=== PATIENT | female | born 1955 | race Caucasian/White ===

== ENCOUNTER 2016-04-21 14:05 | Inpatient (IN) | payer SELFPAY ==
[2016-04-21] VITALS (11 sets, daily range): BP systolic 126–160; BP diastolic 65–78
[~2016-04-21] VITALS: Ht 167.6 cm; Wt 121.0 kg
[2016-04-21 15:47] LABS: DIFF SLIDE NUMBER 167; MEAN CORPUSCULAR HEMOGLOBIN 40.1 pg (27.0-33.0); MEAN CORPUSCULAR HGB CONC 32.7 g/dl (32.0-36.5); MEAN CORPUSCULAR VOLUME 122.8 fl (80.0-96.0); RED CELL DISTRIBUTION WIDTH 18.6 % (11.5-14.5); WHITE BLOOD COUNT 2.1 K/mm3 (4.0-10.0)
[2016-04-21 15:52] LABS: PLATELET COUNT, AUTOMATED 97 k/mm3 (150-450)
[2016-04-21 15:58] LABS: ALBUMIN 4.2 GM/DL (3.2-5.2); ALBUMIN/GLOBULIN RATIO 1.02 (1.00-1.93); ALKALINE PHOSPHATASE 78 U/L (45-117); ALT/SGPT 22 U/L (12-78); ANION GAP 8 MEQ/L (8-16); AST/SGOT 41 U/L (15-37); BILIRUBIN,DIRECT 0.1 MG/DL (0.0-0.2); BILIRUBIN,TOTAL 0.4 MG/DL (0.2-1.0); BLOOD UREA NITROGEN 19 MG/DL (7-18); CALCIUM LEVEL 9.1 MG/DL (8.5-10.1); CARBON DIOXIDE LEVEL 26 MEQ/L (21-32); CHLORIDE LEVEL 105 MEQ/L (98-107); CREATININE FOR GFR 1.88 MG/DL (0.55-1.02); GLOMERULAR FILTRATION RATE 29.2 (>51); GLUCOSE, FASTING 97 MG/DL (70-105); SODIUM LEVEL 139 MEQ/L (136-145); TOTAL PROTEIN 8.3 GM/DL (6.4-8.2)
--- NOTE | 2016-04-21 16:08 | REP ---
Clinical: Syncope. Technique: AP and lateral views. Comparison: None. Findings: Evaluation is limited by portable technique and underpenetration both of which accentuate the pulmonary vasculature and interstitium. Basilar atelectasis along with pulmonary venous congestion cannot be excluded. No discrete focal consolidation, effusion, or pneumothorax. Mediastinum and cardiac silhouette are grossly normal for portable technique. Skeletal structures are intact. Impression: Limited portable examination. Cannot exclude basilar atelectasis or mild pulmonary venous congestion. Signed by Sudarshan Ambriz MD 04/21/2016 03:59 P
[2016-04-21] MEDS ORDERED: MORPHINE 4 MG/ML 1ML SYRINGE As Ordered ONE ×2 (16:25→19:49)
[2016-04-21 16:30] LABS: ERYTHROCYTE SEDIMENTATION RATE 126 mm/hr (0-30)
[2016-04-21] MEDS ORDERED: SYNT175T2 PO (16:30)
[2016-04-21] MEDS ORDERED: BENA25CA2 PO (16:30)
[2016-04-21] MEDS ORDERED: BACL10TA2 PO (16:30)
[2016-04-21 16:40] LABS: BLAST CELLS 2 % (0-0); EOSINOPHILS 1 % (0-5)
[2016-04-21 16:41] LABS: MICROCYTOSIS 4+
[2016-04-21 16:42] LABS: ANISOCYTOSIS 2+
[2016-04-21 17:08] LABS: T UPTAKE 26 % (30-39); THYROXINE (T4) < 0.5 UG/DL (4.5-12.0)
[2016-04-21] MEDS ORDERED: BISACODYL 5 MG TAB PO PRN (17:45)
[2016-04-21] MEDS ORDERED: ONDANSETRON 4MG/2ML VIAL (J2405) IV PRN (17:45)
[2016-04-21 18:34] LABS: FERRITIN 135 NG/ML (8-252); TOTAL IRON BINDING CAPACITY 384 UG/DL (250-450)
[2016-04-21 18:38] LABS: BASO % 0.5 % (0.0-1.0); EOS # 0.1 K/mm3 (0.0-0.50); EOS % 4.1 % (0.0-3.0); LARGE UNSTAINED CELL # 0.2 K/mm3 (0.0-0.4); LARGE UNSTAINED CELL % 7.8 % (0.0-4.0); LYMPH # 1.4 K/mm3 (1.5-4.5); LYMPH % 60.7 % (24.0-44.0); MONO # 0.1 K/mm3 (0.0-0.8); MONO % 4.7 % (0.0-5.0); NEUTROPHILS # 0.5 K/mm3 (1.8-7.7); NEUTROPHILS % 22.3 % (36.0-66.0); RETIC HEMOGLOBIN CONTENT CHr 43.5 PG (24-36); RETICULOCYTE ABSOLUTE ADVIA212 16 x10(9)/L (17-77)
[2016-04-21 18:41] LABS: REASON FOR REVIEW COMPREHENSIVE REVIEW
[2016-04-21 18:55] LABS: PERCENT SATURATION 44.8 % (13.2-37.4)
[2016-04-21 19:05] LABS: URIC ACID 7.8 MG/DL (2.6-6.0)
[2016-04-21] MEDS ORDERED: ONDANSETRON 4MG/2ML VIAL (J2405) As Ordered ONE (20:37)
[2016-04-21] MEDS ORDERED: PERCOCET 5MG/325MG TAB PO PRN ×2 (21:15)
[2016-04-21 21:28] LABS: INR 1.02
[2016-04-21 21:37] LABS: FREE T4 0.19 NG/DL (0.76-1.46)
--- NOTE | 2016-04-21 21:49 | EDDOCDS ---
Nurse's Notes [facility] Name: Anjelica Jeronimo Age: 60 yrs Sex: Female : 1955 Arrival Date: 04/21/2016 Time: 14:05 Bed 10 Private MD: NO PRIMARY PHYSICIAN, . Diagnosis: Pancytopenia;Acute kidney failure;Hypothyroidism, unspecified;Syncope and collapse;Acute pain, not elsewhere classified-exacerbation of chronic back pain Presentation: 04/21 14:10 Presenting complaint: Patient states: c/o chronic low back hip and bilateral shoulder. bcj states that she has passed out several times over last 10 days - becomes very lightheaded, dizzy and passes out when walking up stairs. denies chest pain SOB. states that she has numbness in both legs. denies head injury. Acute neurological deficits are not present. Mechanism of Injury: Fall from standing position. Adult Sepsis Screening: The patient does not have new or worsening altered mentation. Patient's respiratory rate is less than 22. Systolic blood pressure is greater than 100. Patient has a qSOFA score of 0- Negative Sepsis Screen. Suicide/Homicide risk assessment- the patient denies having any suicidal and/or homicidal ideations and does not present with any other emotional, behavioral or mental health complaints. Status: Patient is not a rehabilitation services aide or dependent. Transition of care: patient was not received from another setting of care. 14:10 Acuity: CHADD Level 3 bcj 14:10 Method Of Arrival: Walkin/Carried/Asstd bcj Triage Assessment: 14:17 General: Appears in no apparent distress, comfortable, Behavior is cooperative. Pain: bcj Location: back Pain currently is 8 out of 10 on a pain scale. HIV screening NA for this visit Offered previously. Musculoskeletal: No deficits noted. Historical: - Allergies: IV Dye; - Home Meds: 1. Synthroid 175 mcg Oral tab 1 tab once daily 2. baclofen 10 mg Oral tab as needed - PMHx: Hypothyroidism; lymphoma; - PSHx: infusaport insertion; - Social history: Smoking status: Patient states was never smoker of tobacco. No barriers to communication noted, The patient speaks fluent Divehi, Speaks appropriately for age. - Family history: Not pertinent. - : The pt / caregiver states he / she is not on anticoagulants. Home medication list is obtained from the patient. - Exposure Risk Screening:: None identified. Screenin:07 Screening information is obtained from the patient. Fall risk: At risk due to prior pml history of falls. Assistance ADL's: requires no assistance with activities of daily living. Abuse/DV Screen: The patient / caregiver reports he/she is: not in a situation that causes fear, pain or injury. Nutritional screening: No deficits noted. Advance Directives: Currently, there is no health care proxy. home support is adequate. Assessment: 15:05 General: Appears ill, Behavior is appropriate for age, cooperative. Pain: Location: pml left trapezius, right trapezius and lumbar area Pain currently is 7 out of 10 on a pain scale. Neurological: Level of Consciousness is awake, alert, Oriented to person, place, time. Neurological: Reports several episodes of near syncope and dizziness over last week as well as one episode of syncope in which pt fell off of her commode, denies head injury . Cardiovascular: Capillary refill < 3 seconds Rhythm is sinus rhythm No ectopy. Respiratory: Airway is patent Respiratory effort is unlabored, Respiratory pattern is regular, symmetrical, Breath sounds are clear bilaterally. GI: Abdomen is non- distended obese, Reports nausea. Derm: Skin is pale. 16:10 General: resting on stretcher, continues to report back pain. resps rapid, unlabored, pml skin pale. sinus rhythm on monitor bradycardic in 50s. . 16:53 General: Appears ill, Behavior is appropriate for age, cooperative. Pain: Location: pml lumbar area and right trapezius and left trapezius Pain currently is 8 out of 10 on a pain scale. Neurological: Level of Consciousness is awake, alert, Oriented to person, place, time. Cardiovascular: Capillary refill < 3 seconds Rhythm is sinus rhythm No ectopy. Respiratory: short of breath and tachypneic with attempts to stand and pivot to bedside commode. Derm: Skin is pale. 17:39 General: blood transfusion initiated as per hospital policy. pt family at bedside. pt pml denies complaints. sinus rhythm on monitor. resps unlabored, skin pale . 18:44 General: Appears in no apparent distress, Behavior is appropriate for age, cooperative. pml Neurological: Level of Consciousness is awake, alert, Oriented to person, place, time. Cardiovascular: Capillary refill < 3 seconds. Respiratory: Airway is patent Respiratory effort is even, unlabored. Derm: Skin is pale. 20:01 General: Appears ill, uncomfortable, Behavior is appropriate for age, cooperative, jp6 pleasant. Pain: Location: lumbar area and right trapezius and left trapezius and back Pain currently is 7 out of 10 on a pain scale. Neurological: Level of Consciousness is awake, alert, Oriented to person, place, time. EENT: No deficits noted. Cardiovascular: Capillary refill is > 3 seconds Heart tones S2 muffled Rhythm is sinus rhythm No ectopy. Respiratory: Airway is patent Respiratory effort is even, unlabored, Respiratory pattern is regular, symmetrical, Breath sounds with rales bilaterally. GI: Abdomen is non- distended obese. : No deficits noted. Derm: Skin is intact, Skin is dry, Skin is pale, Skin temperature is cool. Musculoskeletal: Reports weakness in right leg and left leg. 20:51 Reassessment: states pain is down to 5/10. Tolerating transfusion well.. jp6 Cardiovascular: Rhythm is sinus rhythm No ectopy. Respiratory: Airway is patent Respiratory effort is even, unlabored, Respiratory pattern is regular, symmetrical. Derm: Skin is intact, Skin is dry, Skin is pale, Skin temperature is cool. Vital Signs: 14:08 BP 158 / 73; Pulse 88; Resp 18; Temp 97.3; Weight 113.4 kg; Height 5 ft. 6 in. (167.64 elp cm); Pain 8/10; 14:35 BP 168 / 74 (auto/); pml 14:38 Pulse 62 MON; Pulse Ox 95% ; pml 14:50 BP 158 / 89 (auto/); pml 14:51 Pulse 60 MON; Pulse Ox 100% ; pml 15:05 BP 155 / 82 (auto/); pml 15:06 Pulse 56 MON; Pulse Ox 97% ; pml 15:20 BP 167 / 87 (auto/); pml 15:21 Pulse 56 MON; Pulse Ox 99% ; pml 15:35 BP 158 / 93 (auto/); pml 15:35 Pulse 54 MON; Pulse Ox 97% ; pml 15:50 BP 166 / 84 (auto/); pml 15:51 Pulse 64 MON; Pulse Ox 95% ; pml 16:05 BP 151 / 86 (auto/); pml 16:06 Pulse 58 MON; Pulse Ox 100% ; pml 16:20 BP 134 / 75 (auto/); pml 16:20 Pulse 62 MON; Pulse Ox 100% ; pml 16:35 Pulse 74 MON; pml 16:35 BP 174 / 91 (auto/); pml 16:50 Pulse 64 MON; Pulse Ox 98% ; pml 16:50 BP 164 / 78 (auto/); pml 17:05 Pulse 66 MON; Pulse Ox 96% ; pml 17:05 BP 150 / 80 (auto/); pml 17:14 Pulse 54 MON; Pulse Ox 96% ; pml 17:14 BP 149 / 81 (auto/); pml 17:20 Pulse 58 MON; Pulse Ox 95% ; pml 17:20 BP 156 / 108 (auto/); pml 17:30 Pulse 56 MON; Pulse Ox 100% ; pml 17:30 BP 166 / 81 (auto/); pml 17:35 Pulse 54 MON; Pulse Ox 100% ; pml 17:35 BP 167 / 94 (auto/); pml 17:50 BP 163 / 88 (auto/); pml 17:50 Pulse 54 MON; Pulse Ox 95% ; pml 18:05 Pulse 50 MON; Pulse Ox 99% ; pml 18:05 BP 150 / 77 (auto/); pml 18:31 Pulse 62 MON; Pulse Ox 100% ; pml 18:32 BP 185 / 85 (auto/); pml 18:35 Pulse 58 MON; Pulse Ox 99% ; pml 18:35 BP 175 / 91 (auto/); pml 19:05 BP 217 / 86 (auto/); jp6 19:05 Pulse 54 MON; Pulse Ox 98% ; jp6 19:20 BP 193 / 89 (auto/); jp6 19:21 Pulse 54 MON; Pulse Ox 99% ; jp6 19:35 BP 172 / 82 (auto/); jp6 19:35 Pulse 58 MON; Pulse Ox 99% ; jp6 19:50 BP 192 / 94 (auto/); jp6 19:50 Pulse 58 MON; Pulse Ox 99% ; jp6 19:55 BP 146 / 83 (auto/); jp6 19:55 Pulse 58 MON; Pulse Ox 100% ; jp6 19:55 Resp 18; Temp 95.8(O); Pain 7/10; jp6 20:20 BP 132 / 80 (auto/); jp6 20:20 Pulse 54 MON; Pulse Ox 94% ; jp6 20:50 BP 136 / 77 (auto/); jp6 20:50 Pulse 50 MON; Pulse Ox 92% ; jp6 20:50 Pulse Ox 98% on R/A; Pain 5/10; jp6 14:08 Body Mass Index 40.35 (113.40 kg, 167.64 cm) [facility] Vitals: 14:08 Log In Time: April 21, 2016 at 14:06. [facility] ED Course: 14:07 Patient visited by Vivinaa Mims PCA. elp 14:07 Patient moved to Waiting elp 14:08 NO PRIMARY PHYSICIAN, . is Private Physician. elp 14:08 Patient visited by Viviana Mims PCA. elp 14:09 Patient moved to Pre RCE elp 14:14 Triage Initiated bcj 14:18 Patient visited by Iftikhar Mckee RN. bcj 14:23 Patient moved to 10 [facility] 14:25 Steffi Zaman DO is [facility]. jo4 14:25 Aarti Vasquez MD is Attending Physician. jo4 15:07 Patient visited by Paula Osuna RN. pml 15:07 The patient / caregiver is instructed regarding the plan of care and ED course. Patient pml has correct armband on for positive identification. Placed in gown. Bed in low position. Call light in reach. Side rails up X2. monitoring tech on. Pulse ox on. NIBP on. 15:07 Inserted peripheral IV: 20gauge IV in right antecubital area and blood collected. pml Patient tolerated the procedure well. 15:18 Jaye Wheat FNP is [facility]. le 15:34 Patient visited by Jaye Wheat FNP. le 15:34 Patient visited by Jaye Wheat FNP. le 16:09 Patient visited by Chico Brasher PCA. jrd 16:09 EKG done. (by ED staff). Reviewed by Jaye FARAH. jrd 16:19 DIFFERENTIAL NO CHARGE Sent. pml 16:35 Patient name changed from Anjelica\S\\S\[place]\S\ to Anjelica\S\ \S\[place]. EDMS 16:37 [facility] [place] [place] Payment Agreement was scanned into [employer] and attached to record. ks16 16:41 Patient visited by Mirian Galeana RN. ck1 16:41 Chest, 2 View (pa\E\lat) Returned. EDMS 16:44 Patient visited by Paula Osuna,JEWELS. pml 16:54 Patient visited by Paula Osuna,JEWELS. pml 17:40 Patient visited by Paula Osuna,JEWELS. pml 17:49 Hilda Fine is Hospitalizing Provider. le 18:23 Patient visited by Trina Dumas,JEWELS. kh7 18:45 Patient visited by Paula Osuna,JEWELS. pml 18:50 Blood products: PRBCs X 1 unit given. pml 19:14 Mila Peña,JEWELS is Primary Nurse. jp6 19:55 No procedures done that require assistance. jp6 19:55 Blood products: PRBCs X 1 unit given. See transfusion record. jp6 20:01 URINE CULTURE Sent. jp6 21:47 Patient visited by Lilibeth Couch RN. tm5 Administered Medications: 16:36 Drug: morphine 4 mg [morphine 4 mg/mL intravenous cartridge (1 mL)] Route: IVP; Site: rs3 left hand; 16:53 Drug: NS 0.9% 1000 ml [sodium chloride 0.9 % injection syringe] Route: IV; Rate: bolus; pml Site: right antecubital; 20:00 Drug: morphine 4 mg [morphine 4 mg/mL intravenous cartridge (1 mL)] Route: IVP; Site: jp6 right antecubital; 20:45 Drug: Ondansetron 4 mg Route: IVP; Site: right antecubital; jp6 Intake: 20:50 PO: 150.00ml; IV: 400.00ml (PRBC); Total: 550.00ml. jp6 Output: 20:50 Urine: 0.00ml; Total: 0.00ml. jp6 Order Results: Lab Order: Basic Metabolic Profile; SPEC'M 04/21/16 14:42 Test: GLUCOSE, FASTING; Value: 97; Range: 70-105; Units: MG/DL; Status: F Test: BLOOD UREA NITROGEN; Value: 19; Range: 7-18; Abnormal: Above high normal; Units: MG/DL; Status: F Test: CREATININE FOR GFR; Value: 1.88; Range: 0.55-1.02; Abnormal: Above high normal; Units: MG/DL; Status: F Test: GLOMERULAR FILTRATION RATE; Value: 29.2; Range: >51; Abnormal: Below low normal; Status: F Test: SODIUM LEVEL; Value: 139; Range: 136-145; Units: MEQ/L; Status: F Test: POTASSIUM SERUM; Value: 4.0; Range: 3.5-5.1; Units: MEQ/L; Status: F Test: CHLORIDE LEVEL; Value: 105; Range: 98-107; Units: MEQ/L; Status: F Test: CARBON DIOXIDE LEVEL; Value: 26; Range: 21-32; Units: MEQ/L; Status: F Test: ANION GAP; Value: 8; Range: 8-16; Units: MEQ/L; Status: F Test: CALCIUM LEVEL; Value: 9.1; Range: 8.5-10.1; Units: MG/DL; Status: F Test Note: ; Units are mL/min/1.73 m2 Chronic Kidney Disease Staging per NKF: Stage I & II GFR >=60 Normal to Mildly Decreased Stage III GFR 30-59 Moderately Decreased Stage IV GFR 15-29 Severely Decreased Stage V GFR <15 Very Little GFR Left ESRD GFR <15 on STAPLER HAND Lab Order: CBC with Diff; SPEC'M 04/21/16 14:42 Test: WHITE BLOOD COUNT; Value: 2.1; Range: 4.0-10.0; Abnormal: Below low normal; Units: K/mm3; Status: F Test: RED BLOOD COUNT; Value: 1.32; Range: 4.00-5.40; Abnormal: Below low normal; Units: M/mm3; Status: F Test: HEMOGLOBIN; Value: 5.3; Range: 12.0-16.0; Abnormal: Critical Low; Units: g/dl; Status: F Test: HEMATOCRIT; Value: 16.2; Range: 36.0-47.0; Abnormal: Below low normal; Units: %; Status: F Test: MEAN CORPUSCULAR VOLUME; Value: 122.8; Range: 80.0-96.0; Abnormal: Above high normal; Units: fl; Status: F Test: MEAN CORPUSCULAR HEMOGLOBIN; Value: 40.1; Range: 27.0-33.0; Abnormal: Above high normal; Units: pg; Status: F Test: MEAN CORPUSCULAR HGB CONC; Value: 32.7; Range: 32.0-36.5; Units: g/dl; Status: F Test: RED CELL DISTRIBUTION WIDTH; Value: 18.6; Range: 11.5-14.5; Abnormal: Above high normal; Units: %; Status: F Test: PLATELET COUNT, AUTOMATED; Value: 97; Range: 150-450; Abnormal: Below low normal; Units: k/mm3; Status: F Test: NEUTROPHILS; Value: 22; Range: 35-75; Abnormal: Below low normal; Units: %; Status: F Test: LYMPHOCYTES; Value: 71; Range: 16-52; Abnormal: Above high normal; Units: %; Status: F Test: MONOCYTES; Value: 4; Range: 0-8; Units: %; Status: F Test: EOSINOPHILS; Value: 1; Range: 0-5; Units: %; Status: F Test: BLAST CELLS; Value: 2; Range: 0-0; Abnormal: Above high normal; Units: %; Status: F Test: ANISOCYTOSIS; Value: 2+; Status: F Test: MICROCYTOSIS; Value: 4+; Status: F Test: NEUTROPHILS %; Value: 22.3; Range: 36.0-66.0; Abnormal: Below low normal; Units: %; Status: F Test: LYMPH %; Value: 60.7; Range: 24.0-44.0; Abnormal: Above high normal; Units: %; Status: F Test: MONO %; Value: 4.7; Range: 0.0-5.0; Units: %; Status: F Test: EOS %; Value: 4.1; Range: 0.0-3.0; Abnormal: Above high normal; Units: %; Status: F Test: BASO %; Value: 0.5; Range: 0.0-1.0; Units: %; Status: F Test: LARGE UNSTAINED CELL %; Value: 7.8; Range: 0.0-4.0; Abnormal: Above high normal; Units: %; Status: F Test: NEUTROPHILS #; Value: 0.5; Range: 1.8-7.7; Abnormal: Below low normal; Units: K/mm3; Status: F Test: LYMPH #; Value: 1.4; Range: 1.5-4.5; Abnormal: Below low normal; Units: K/mm3; Status: F Test: MONO #; Value: 0.1; Range: 0.0-0.8; Units: K/mm3; Status: F Test: EOS #; Value: 0.1; Range: 0.0-0.50; Units: K/mm3; Status: F Test: BASO #; Value: 0.0; Range: 0.0-0.2; Units: K/mm3; Status: F Test: LARGE UNSTAINED CELL #; Value: 0.2; Range: 0.0-0.4; Units: K/mm3; Status: F Lab Order: Cardiac Injury Profile; [facility]' 04/21/16 14:42 Test: CPK CREATINE PHOSPHOKINASE; Value: 999; Range: 26-192; Abnormal: Above high normal; Units: U/L; Status: F Test: CK-MB VALUE MASS; Value: 6.0; Range: 0.0-3.6; Abnormal: Above high normal; Units: NG/ML; Status: F Test: MB/CK RELATIVE INDEX; Value: 0.60; Range: < OR =4; Status: F Test Note: ; DIAGNOSIS CRITERIA MMB ng/ml Relative Index (RI) NON-AMI < or = 5 N/A FU ZONE > 5 < or = 4 AMI > 5 > 4 Lab Order: Thyroid Stimulating Hormone; [facility] 04/21/16 14:42 Test: THYROID STIMULATING HORMONE; Value: 133.000; Range: 0.358-3.740; Abnormal: Above high normal; Units: uIU/ML; Status: F Lab Order: Troponin; [facility] 04/21/16 14:42 Test: TROPONIN I; Value: < 0.02; Range: < 0.10; Units: NG/ML; Status: F Test Note: ; Troponin I Reference Interval for Spectropath LOCI: 99th Percentile= 0.00-0.045 ng/ml Risk Stratification: <= 0.10 ng/ml Decreased Risk for Adverse Clinical Events. 0.10-1.50 ng/ml Increased Risk for Adverse Clinical Events. Evaluation of additional criterion and/or repeat testing in 2-6 hours is suggested to rule out myocardial damage. >= 1.50 ng/ml Indicative of Myocardial Injury. Lab Order: Urinalysis; [facility] 04/21/16 16:51 Test: APPEARANCE, URINE; Value: CLEAR; Range: CLEAR; Status: F Test: COLOR, URINE; Value: STRAW; Range: YELLOW; Status: F Test: PH,URINE; Value: 6.0; Range: 5.0-9.0; Units: UNITS; Status: F Test: SPECIFIC GRAVITY URINE AUTO; Value: 1.004; Range: 1.002-1.035; Status: F Test: PROTEIN, URINE AUTO; Value: NEGATIVE; Range: NEGATIVE; Units: mg/dL; Status: F Test: GLUCOSE, URINE (UA) AUTO; Value: NEGATIVE; Range: NEGATIVE; Units: mg/dL; Status: F Test: KETONE, URINE AUTO; Value: NEGATIVE; Range: NEGATIVE; Units: mg/dL; Status: F Test: UROBILINOGEN, URINE AUTO; Value: 0.2; Range: 0.0-2.0; Units: mg/dL; Status: F Test: BILIRUBIN, URINE AUTO; Value: NEGATIVE; Range: NEGATIVE; Status: F Test: NITRITE, URINE AUTO; Value: NEGATIVE; Range: NEGATIVE; Status: F Test: LEUKOCYTE ESTERASE, URINE AUTO; Value: 3+; Range: NEGATIVE; Abnormal: Above high normal; Status: F Test: BLOOD, URINE BLOOD; Value: NEGATIVE; Range: NEGATIVE; Status: F Test: WBC, URINE AUTO; Value: 20; Range: 0-3; Abnormal: Above high normal; Units: /HPF; Status: F Test: RBC, URINE AUTO; Value: 3; Range: 0-3; Units: /HPF; Status: F Test: BACTERIA, URINE AUTO; Value: 1+; Range: NEGATIVE; Abnormal: Above high normal; Status: F Test: SQUAMOUS EPITHELIAL CELL UR AU; Value: 2; Range: 0-6; Units: /HPF; Status: F Test: HYALINE CAST, URINE AUTO; Value: 0; Range: 0-1; Units: /LPF; Status: F Lab Order: Liver Profile; SPEC'M 04/21/16 14:42 Test: AST/SGOT; Value: 41; Range: 15-37; Abnormal: Above high normal; Units: U/L; Status: F Test: ALT/SGPT; Value: 22; Range: 12-78; Units: U/L; Status: F Test: ALKALINE PHOSPHATASE; Value: 78; Range: 45-117; Units: U/L; Status: F Test: BILIRUBIN,TOTAL; Value: 0.4; Range: 0.2-1.0; Units: MG/DL; Status: F Test: BILIRUBIN,DIRECT; Value: 0.1; Range: 0.0-0.2; Units: MG/DL; Status: F Test: TOTAL PROTEIN; Value: 8.3; Range: 6.4-8.2; Abnormal: Above high normal; Units: GM/DL; Status: F Test: ALBUMIN; Value: 4.2; Range: 3.2-5.2; Units: GM/DL; Status: F Test: ALBUMIN/GLOBULIN RATIO; Value: 1.02; Range: 1.00-1.93; Status: F Lab Order: CRP; [facility] 04/21/16 14:42 Test: C REACTIVE PROTEIN QUANTITATIV; Value: < 0.30; Range: 0.00-0.30; Units: MG/DL; Status: F Lab Order: ESR; [facility] 04/21/16 14:42 Test: ERYTHROCYTE SEDIMENTATION RATE; Value: 126; Range: 0-30; Abnormal: Above high normal; Units: mm/hr; Status: F Lab Order: D-Dimer Quant; 04/21/16 15:45 Test: D-DIMER QUANT; Value: 468.0; Range: <500; Units: ng/ml; Status: F Lab Order: PLATELET ESTIMATE; 04/21/16 14:42 Test: PLATELET ESTIMATE; Value: DECREASED; Range: NORMAL; Status: F Lab Order: TYPE & SCREEN; [facility] 04/21/16 14:42 Test: BLOOD TYPE; Value: O POS; Status: F Test: AB SCREEN (INDIRECT AP)GEL; Value: NEGATIVE; Status: F Test: IMMEDIATE SPIN CROSSMATCH; Value: [id number] O POSITIVE Compatible? Y; Status: F Test: IMMEDIATE SPIN CROSSMATCH; Value: [id number] O POSITIVE Compatible? Y; Status: F Test: IMMEDIATE SPIN CROSSMATCH; Value: [id number] O POSITIVE Compatible? Y; Status: F Test: IMMEDIATE SPIN CROSSMATCH; Value: [id number] O POSITIVE Compatible? Y; Status: F Lab Order: Urine Myoglobin Screen; 04/21/16 16:51 Test: MYOGLOBIN SCREEN, URINE; Value: NEGATIVE; Range: NEGATIVE; Status: F Lab Order: THYROXINE (T4); 04/21/16 14:42 Test: THYROXINE (T4); Value: < 0.5; Range: 4.5-12.0; Abnormal: Below low normal; Units: UG/DL; Status: F Lab Order: T UPTAKE; 04/21/16 14:42 Test: T UPTAKE; Value: 26; Range: 30-39; Abnormal: Below low normal; Units: %; Status: F Lab Order: PATHOLOGIST REVIEW COMPREHENSI; 04/21/16 14:42 Test: SLIDE REVIEW; Value: Report; Status: F Test: SOURCE; Value: PERIPHERAL SMEAR; Status: F Test: REASON FOR REVIEW; Value: COMPREHENSIVE REVIEW; Status: F Test Note: ; Slide and/or specimen referred to Pathologist for review. Results of the review are located in the EMR Pathology module under Peripheral Smear when completed. Lab Order: RETICULOCYTE COUNT; 04/21/16 14:42 Test: RETICULOCYTE % [id number]; Value: 1.20; Range: 0.5-1.5; Units: %; Status: F Test: RETICULOCYTE ABSOLUTE [id number]; Value: 16; Range: 17-77; Abnormal: Below low normal; Units: x10(9)/L; Status: F Test: RETIC HEMOGLOBIN CONTENT CHr; Value: 43.5; Range: 24-36; Abnormal: Above high normal; Units: PG; Status: F Lab Order: FERRITIN; 04/21/16 14:42 Test: FERRITIN; Value: 135; Range: 8-252; Units: NG/ML; Status: F Lab Order: TOTAL IRON BINDING CAPACIT; 04/21/16 14:42 Test: IRON (FE); Value: 172; Range: 50-170; Abnormal: Above high normal; Units: UG/DL; Status: F Test: TOTAL IRON BINDING CAPACITY; Value: 384; Range: 250-450; Units: UG/DL; Status: F Test: PERCENT SATURATION; Value: 44.8; Range: 13.2-37.4; Abnormal: Above high normal; Units: %; Status: F Lab Order: BRAIN NATIURETIC PEPTIDE; 04/21/16 14:42 Test: BRAIN NATRIURETIC PEPTIDE; Value: 15.1; Range: <100; Units: PG/ML; Status: F Lab Order: LACTATE DEHYDROGENASE; 04/21/16 14:42 Test: LDH LACTATE DEHYDROGENASE; Value: 452; Range: 84-246; Abnormal: Above high normal; Units: U/L; Status: F Lab Order: URIC ACID; 04/21/16 14:42 Test: URIC ACID; Value: 7.8; Range: 2.6-6.0; Abnormal: Above high normal; Units: MG/DL; Status: F Lab Order: PROTHROMBIN TIME PROFILE\E\INR; 04/21/16 15:45 Test: PROTHROMBIN TIME; Value: 13.5; Range: 12.3-14.5; Units: SECONDS; Status: F Test: INR; Value: 1.02; Status: F Test Note: ; THERAPUTIC HUMAN INR VALUES INDICATIONS NORMAL RANGES PROPHYLAXIS/TREATMENT OF: VENOUS THROMBOSIS 2.0-3.0 PULMONARY EMBOLISM 2.0-3.0 PREVENTION OF SYSTEMIC EMBOLISM FROM: TISSUE HEART VALVES 2.0-3.0 ACUTE MYOCARDIAL INFARCTION 2.0-3.0 VALVULAR HEART DISEASE 2.0-3.0 ATRIAL FIBRILLATION 2.0-3.0 MECHANICAL VALVES(HIGH RISK) 2.5-3.5 RECURRENT MYOCARDIAL INFARCTION 2.5-3.5 Lab Order: PARTIAL THROMBOPLASTIN TIME; [facility] 15:45 Test: PARTIAL THROMBOPLASTIN TIME; Value: 34.9; Range: 26.6-37.1; Units: SECONDS; Status: F Lab Order: FREE T4; 04/21/16 14:42 Test: FREE T4; Value: 0.19; Range: 0.76-1.46; Abnormal: Below low normal; Units: NG/DL; Status: F Radiology Order: Chest, 2 View (pa\E\lat) Test: Chest, 2 View (pa\E\lat) REASON FOR EXAMINATION: Syncope; Clinical: Syncope.; ; Technique: AP and lateral views.; ; Comparison: None.; ; Findings:; Evaluation is limited by portable technique and underpenetration both of which; accentuate the pulmonary vasculature and interstitium. Basilar atelectasis along; with pulmonary venous congestion cannot be excluded. No discrete focal; consolidation, effusion, or pneumothorax. Mediastinum and cardiac silhouette are; grossly normal for portable technique. Skeletal structures are intact.; ; Impression:; Limited portable examination. Cannot exclude basilar atelectasis or mild; pulmonary venous congestion.; ; ; Signed by; Sudarshan Ambriz MD 04/21/2016 03:59 P; Outcome: 17:49 Decision to Hospitalize by Provider. le 21:18 Discharge Assessment: Patient awake, alert and oriented x 3. No cognitive and/or jp6 functional deficits noted. Patient verbalized understanding of disposition instructions. patient administered narcotics - yes. Patient was admitted to the hospital or transferred to another facility. The following High Risk Discharge criteria are identified: None. Admitted to ICU accompanied by nurse, accompanied by tech, via stretcher, on monitor, with chart. Condition: unchanged critical. CT Study completed. Ultrasound Study completed. Admission hand-off: Report called to Daniel DONIS. Property :Personal belongings accompany Pt. 21:48 Patient left the ED. tm5 Signatures: Dispatcher [employer] EDMS Iftikhar Mckee, RN RN Mirian HoRN RN ck1 Jaye Wheat, NEGATIVE CLEANER NEGATIVE CLEANER Jacinda Carbone,RN RN rs3 Paula Osuna,RN RN pml Trina Dumas,RN RN kh7 Viviana Mims, CREATIVE SPECIALIST CREATIVE SPECIALIST elp Chico Brasher, CREATIVE SPECIALIST CREATIVE SPECIALIST d Steffi Zaman DO DO Cindy Sigala, Reg Reg ks16 Mila PeñaRN RN jp6 Lilibeth Cuoch,RN RN tm5 MTDD
--- NOTE | 2016-04-21 21:49 | EDDOCDS ---
Physician Documentation [facility] Name: Anjelica Jeronimo Age: 60 yrs Sex: Female : 1955 Arrival Date: 04/21/2016 Time: 14:05 Bed 10 Private MD: NO PRIMARY PHYSICIAN, . Disposition: 04/21/16 17:49 Hospitalization ordered by Hilda Fine for Inpatient Admission. Preliminary diagnosis are Pancytopenia, Acute kidney failure, Hypothyroidism, unspecified, Syncope and collapse, Acute pain, not elsewhere classified - exacerbation of chronic back pain. - Bed requested for M ICU. - Status is Inpatient Admission. tm5 - Condition is Stable. - Problem is new. - Symptoms are unchanged. Historical: - Allergies: IV Dye; - Home Meds: 1. Synthroid 175 mcg Oral tab 1 tab once daily 2. baclofen 10 mg Oral tab as needed - PMHx: Hypothyroidism; lymphoma; - PSHx: infusaport insertion; - Social history: Smoking status: Patient states was never smoker of tobacco. No barriers to communication noted, The patient speaks fluent Telugu, Speaks appropriately for age. - Family history: Not pertinent. - : The pt / caregiver states he / she is not on anticoagulants. Home medication list is obtained from the patient. - Exposure Risk Screening:: None identified. Vital Signs: 04/21 14:08 BP 158 / 73; Pulse 88; Resp 18; Temp 97.3; Weight 113.4 kg / 250 lbs; Height 5 ft. 6 elp in. (167.64 cm); Pain 8/10; 14:35 BP 168 / 74 (auto/); pml 14:38 Pulse 62 MON; Pulse Ox 95% ; pml 14:50 BP 158 / 89 (auto/); pml 14:51 Pulse 60 MON; Pulse Ox 100% ; pml 15:05 BP 155 / 82 (auto/); pml 15:06 Pulse 56 MON; Pulse Ox 97% ; pml 15:20 BP 167 / 87 (auto/); pml 15:21 Pulse 56 MON; Pulse Ox 99% ; pml 15:35 BP 158 / 93 (auto/); pml 15:35 Pulse 54 MON; Pulse Ox 97% ; pml 15:50 BP 166 / 84 (auto/); pml 15:51 Pulse 64 MON; Pulse Ox 95% ; pml 16:05 BP 151 / 86 (auto/); pml 16:06 Pulse 58 MON; Pulse Ox 100% ; pml 16:20 BP 134 / 75 (auto/); pml 16:20 Pulse 62 MON; Pulse Ox 100% ; pml 16:35 Pulse 74 MON; pml 16:35 BP 174 / 91 (auto/); pml 16:50 Pulse 64 MON; Pulse Ox 98% ; pml 16:50 BP 164 / 78 (auto/); pml 17:05 Pulse 66 MON; Pulse Ox 96% ; pml 17:05 BP 150 / 80 (auto/); pml 17:14 Pulse 54 MON; Pulse Ox 96% ; pml 17:14 BP 149 / 81 (auto/); pml 17:20 Pulse 58 MON; Pulse Ox 95% ; pml 17:20 BP 156 / 108 (auto/); pml 17:30 Pulse 56 MON; Pulse Ox 100% ; pml 17:30 BP 166 / 81 (auto/); pml 17:35 Pulse 54 MON; Pulse Ox 100% ; pml 17:35 BP 167 / 94 (auto/); pml 17:50 BP 163 / 88 (auto/); pml 17:50 Pulse 54 MON; Pulse Ox 95% ; pml 18:05 Pulse 50 MON; Pulse Ox 99% ; pml 18:05 BP 150 / 77 (auto/); pml 18:31 Pulse 62 MON; Pulse Ox 100% ; pml 18:32 BP 185 / 85 (auto/); pml 18:35 Pulse 58 MON; Pulse Ox 99% ; pml 18:35 BP 175 / 91 (auto/); pml 19:05 BP 217 / 86 (auto/); jp6 19:05 Pulse 54 MON; Pulse Ox 98% ; jp6 19:20 BP 193 / 89 (auto/); jp6 19:21 Pulse 54 MON; Pulse Ox 99% ; jp6 19:35 BP 172 / 82 (auto/); jp6 19:35 Pulse 58 MON; Pulse Ox 99% ; jp6 19:50 BP 192 / 94 (auto/); jp6 19:50 Pulse 58 MON; Pulse Ox 99% ; jp6 19:55 BP 146 / 83 (auto/); jp6 19:55 Pulse 58 MON; Pulse Ox 100% ; jp6 19:55 Resp 18; Temp 95.8(O); Pain 7/10; jp6 20:20 BP 132 / 80 (auto/); jp6 20:20 Pulse 54 MON; Pulse Ox 94% ; jp6 20:50 BP 136 / 77 (auto/); jp6 20:50 Pulse 50 MON; Pulse Ox 92% ; jp6 20:50 Pulse Ox 98% on R/A; Pain 5/10; jp6 14:08 Body Mass Index 40.35 (113.40 kg, 167.64 cm) elp MDM: 15:36 Deli Worker/Pulse Ox/q 15 min VS ordered. le 15:36 Accucheck ordered. le 15:36 IV Saline Lock ordered. le 15:36 Rhythm Strip to chart ordered. le 15:37 Basic Metabolic Profile Ordered. EDMS 15:37 CBC with Diff Ordered. EDMS 15:37 Cardiac Injury Profile Ordered. EDMS 15:37 Thyroid Stimulating Hormone Ordered. EDMS 15:37 Troponin Ordered. EDMS 15:37 Urinalysis Ordered. EDMS 15:37 Liver Profile Ordered. EDMS 15:37 CRP Ordered. EDMS 15:37 ESR Ordered. EDMS 15:37 ECG WITH READING ER PHYS+CARDIAG ordered. EDMS 15:37 Chest, 2 View (pa\E\lat) Ordered. EDMS 15:46 D-Dimer Quant Ordered. EDMS 15:53 DIFFERENTIAL NO CHARGE Ordered. EDMS 15:53 PLATELET ESTIMATE Ordered. EDMS 15:55 BED REQUEST+ADM ordered. EDMS 15:58 Transfuse 4 units PRBCs ordered. le 15:58 CBC with Diff Reviewed. le 15:59 Type and Cross, Packed Cells Ordered. EDMS 16:00 TYPE & SCREEN Ordered. EDMS 16:20 morphine 4 mg IVP every 15 minutes; Document pain score/vitals after each dose (Hold if le SBP < 90mmHg) x2 ordered. 16:24 Basic Metabolic Profile Reviewed. le 16:24 Liver Profile Reviewed. le 16:24 Troponin Reviewed. le 16:24 CRP Reviewed. le 16:24 D-Dimer Quant Reviewed. le 16:24 TYPE & SCREEN Reviewed. le 16:27 NS 0.9% 1000 ml IV at bolus once ordered. le 16:28 Basic Metabolic Profile Reviewed. le 16:28 Cardiac Injury Profile Reviewed. le 16:28 Thyroid Stimulating Hormone Reviewed. le 16:28 Liver Profile Reviewed. le 16:28 Troponin Reviewed. le 16:28 CRP Reviewed. le 16:28 TYPE & SCREEN Reviewed. le 16:28 Urine Myoglobin Screen Ordered. EDMS 16:30 Financial registration complete. [id number] 16:37 [facility] [place] [facility] Payment Agreement was scanned into [employer] and attached to record. [email or web address] 16:56 THYROXINE (T4) Ordered. EDMS 16:56 T UPTAKE Ordered. EDMS 17:31 Basic Metabolic Profile Reviewed. le 17:31 CBC with Diff Reviewed. le 17:31 Cardiac Injury Profile Reviewed. le 17:31 Thyroid Stimulating Hormone Reviewed. le 17:31 Urinalysis Reviewed. le 17:31 Liver Profile Reviewed. le 17:31 ESR Reviewed. le 17:31 THYROXINE (T4) Reviewed. le 17:31 T UPTAKE Reviewed. le 17:31 Troponin Reviewed. le 17:31 CRP Reviewed. le 17:31 PLATELET ESTIMATE Reviewed. le 17:31 TYPE & SCREEN Reviewed. le 17:31 Urine Myoglobin Screen Reviewed. le 17:31 Chest, 2 View (pa\E\lat) Reviewed. le 17:49 PHYSICAL THERAPY EVAL & TREAT ordered. EDMS 17:50 Admission / Observation Status ordered. EDMS 17:50 NO ADDED SALT DIET ordered. EDMS 17:53 ELECTROCARDIOGRAM ADULT ordered. EDMS 17:55 URINE CULTURE Ordered. EDMS 18:02 FERRITIN Ordered. EDMS 18:03 TOTAL IRON BINDING CAPACIT Ordered. EDMS 18:04 BRAIN NATIURETIC PEPTIDE Ordered. EDMS 18:04 SODIUM,RANDOM URINE Ordered. EDMS 18:05 CREATININE,RANDOM URINE Ordered. EDMS 18:05 RENAL US Ordered. EDMS 18:55 LACTATE DEHYDROGENASE Ordered. EDMS 19:33 BASIC METABOLIC PROFILE Ordered. EDMS 19:33 CBC WITH DIFFERENTIAL Ordered. EDMS 19:33 CARDIAC MARKER PANEL Ordered. EDMS 19:33 CARDIAC MARKER PANEL Ordered. EDMS 19:33 CARDIAC MARKER PANEL Ordered. EDMS 19:33 HEMOGLOBIN & HEMATOCRIT Ordered. EDMS 19:33 HEMOGLOBIN & HEMATOCRIT Ordered. EDMS 19:33 HEMOGLOBIN & HEMATOCRIT Ordered. EDMS 19:33 HEMOGLOBIN & HEMATOCRIT Ordered. EDMS 20:08 Ondansetron 4 mg IVP once ordered. le 20:08 ECHOCARD,DOPPLER/COLOR FLOW ordered. EDMS 20:08 CT Chest without contrast Ordered. EDMS 20:08 CT ABD & PELVIS W/O CONTRAST Ordered. EDMS 20:24 CT Spine, lumbar w/o contrast Ordered. EDMS 20:24 CT Spine,thoracic w/o contrast Ordered. EDMS 20:55 ECHOCARD,DOPPLER/COLOR FLOW ordered. EDMS 20:55 CT Neck without contrast Ordered. EDMS 20:56 PATHOLOGIST REVIEW COMPREHENSI Ordered. EDMS 21:13 FREE T4 Ordered. EDMS 21:13 HAPTOGLOBIN Ordered. EDMS 21:18 ANTINUCLEAR ANTIBODIES Ordered. EDMS 21:22 MRSA SCREEN Ordered. EDMS Administered Medications: 16:36 Drug: morphine 4 mg [morphine 4 mg/mL intravenous cartridge (1 mL)] Route: IVP; Site: rs3 left hand; 16:53 Drug: NS 0.9% 1000 ml [sodium chloride 0.9 % injection syringe] Route: IV; Rate: bolus; pml Site: right antecubital; 20:00 Drug: morphine 4 mg [morphine 4 mg/mL intravenous cartridge (1 mL)] Route: IVP; Site: jp6 right antecubital; 20:45 Drug: Ondansetron 4 mg Route: IVP; Site: right antecubital; jp6 Signatures: Dispatcher [employer] EDIftikhar Cannon RN Anca Ramirez RN JEWELS daJaye Balbuena, PLANT OPERATIONS ENGINEER PLANT OPERATIONS ENGINEER Paula GonzalezRN RN pml Cindy Kiser, Reg Reg [id number] Lilibeth CocuhRN RN [id number] Jacinda Leung RN rs3 Mila Peña RN jp6 The chart was reviewed and I authenticate all verbal orders and agree with the evaluation and treatment provided.Corrections: (The following items were deleted from the chart) 15:54 15:36 Orthostatic VS ordered. le le 16:36 16:30 THYROID PROFILE+LAB ordered. EDMS EDMS 18:02 17:48 PATHOLOGIST REVIEW COMPREHENSI ordered. EDMS EDMS 18:02 17:48 RETICULOCYTE COUNT ordered. EDMS EDMS 18:02 17:48 IRON (FE) ordered. EDMS EDMS 18:02 17:48 TOTAL IRON BINDING CAPACIT ordered. EDMS EDMS 18:02 17:48 FERRITIN ordered. EDMS EDMS 18:57 18:06 C REACTIVE PROTEIN QUANTITATIV ordered. EDMS EDMS 18:57 18:06 ANTINUCLEAR ANTIBODIES ordered. EDMS EDMS 18:57 18:11 LACTATE DEHYDROGENASE ordered. EDMS EDMS 18:57 18:11 URIC ACID ordered. EDMS EDMS 19:02 16:23 Misc Copier Technician Order ordered. le [email or web address] 20:28 20:07 Spine, THORACOLUMBAR 2 VIEW ordered. EDMS EDMS 21: 20:55 PT & APTT ordered. EDMS EDMS 21: 20:56 PROTHROMBIN TIME PROFILE\E\INR ordered. EDMS EDMS 21: 21:03 VITAMIN B12 LEVEL ordered. EDMS EDMS 21:10 21:03 FOLATE ordered. EDMS EDMS 21: 21:01 HAPTOGLOBIN ordered. EDMS EDMS 21: 21:01 PT & APTT ordered. EDMS EDMS 21: 21:01 PROTHROMBIN TIME PROFILE\E\INR ordered. EDMS EDMS 21: 21:01 FREE T4 ordered. EDMS EDMS 21: 18:55 ANTINUCLEAR ANTIBODIES ordered. EDMS EDMS Attachments: 16:37 [facility] [place] [facility] Payment Agreement [email or web address] MTDD
--- NOTE | 2016-04-21 21:50 | REPUSA ---
CLINICAL HISTORY: ARF. TECHNIQUE: Realtime sonographic images were obtained in multiple projections. COMMENTS: The right kidney measures 9.1 cm and the left kidney measures 9.8 cm. Both kidneys are free of hyd ronephrosis. There is no evidence of solid or cystic mass. There is no perinephric fluid. There is no renal calculus. Bladder is WNL. IMPRESSION: Normal study. Thank you for your kind referral of this patient.
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
[2016-04-21] MEDS ORDERED: ISOSORBIDE MON. (IMDUR) 30 MG XR TAB PO SCH (22:00)
--- NOTE | 2016-04-21 22:30 | REPUSA ---
CLINICAL HISTORY: Back pain. TECHNIQUE: Multiple axial images were obtained through the L1-L2, L2-L3, L3-L4, L4-L5 and L5-S1 inter spaces. Images were also reconstructed in coronal and sagittal planes. COMMENTS: There is no fracture visualized. The paraspinal soft tissues are unremarkable. There are no lytic or blastic lesions. Straightening of lumbar lordosis is seen, suggesting muscular spasm. There is evidence of multilevel disk disease, demonstrated by osteophytosis and endplate sclerosis. IMPRESSION: 1. No fracture or spondylolisthesis. 2. Straightening of lumbar lordosis is seen, suggesting muscular spasm. 3. Mild multilevel degenerative spondylosis. Thank you for your kind referral of this patient.
--- NOTE | 2016-04-21 22:30 | REPUSA ---
CLINICAL HISTORY: WEAKNESS, BACK PAIN, HX OF LYMPHOMA. TECHNIQUE: Multiple axial CT images were obtained through the thoracic spine without IV contrast mate rial. MPR coronal and sagittal sequences were obtained. COMMENTS: Mild multilevel degenerative changes are present. There are small present on multiple mid to lower t horacic levels. There is no fracture visualized. The paraspinal soft tissues are unremarkable. There are no lytic or blastic lesions. The paravertebral soft tissue space is normal. IMPRESSION: Mild multilevel degenerative changes are present. No evidence of acute pathology. Thank you for your kind referral of this patient.
[2016-04-21] MEDS: DOCUSATE SODIUM 100 MG CAP PO SCH (22:40)
[2016-04-21] MEDS: FERROUS SULFATE 325MG TAB PO SCH (22:40)
[2016-04-21] MEDS: SENOKOT S TAB PO SCH (22:40)
--- NOTE | 2016-04-21 22:40 | REPUSA ---
CLINICAL HISTORY: NAWEAKNESS, BACK PAIN, HX OF LYMPHOMA TECHNIQUE: Multiple axial CT images were obtained through chest without IV contrast material. MPR cor onal and sagittal sequences were obtained. COMMENTS: There is no evidence of pleural or parenchymal mass. There are no pleural effusions. There is no evid ence of hilar or mediastinal lymphadenopathy. The heart and great vessels are within normal limits. The bony structures are free of lytic or blastic lesions. Multilevel degenerative changes are seen in volving the thoracic spine. Scattered calcifications are seen involving the aorta and visualized rhoda r branches compatible with atherosclerosis. IMPRESSION: No evidence of acute thoracic pathology. Thank you for your kind referral of this patient.
[2016-04-21] MEDS: ACETAMINOPHEN TAB 650MG DOSE (2X325MG) PO PRN (22:41)
--- NOTE | 2016-04-21 22:50 | REPUSA ---
CLINICAL HISTORY: WEAKNESS, BACK PAIN, HX OF LYMPHOMA TECHNIQUE: Multiple axial CT images were obtained through the neck without IV contrast material. MPR coronal and sagittal sequences were obtained. COMMENTS: The oropharyngeal soft tissues are normal and bilaterally symmetric. The piriform sinuses are normal. There is no supra or infraglottic laryngeal mass. The proximal trachea is normal. There is no paravertebral soft tissue mass. The salivary glands are normal. There is no deep cervical or jugular lymphadenopathy. The paravertebral soft tissue space is normal. Limited images through the posterior fossa demonstrate no evidence for tonsilar herniation. Evaluation of the visualized lung apices reveals no evidence for abnormality. IMPRESSION: No acute pathology. Thank you for your kind referral of this patient.
--- NOTE | 2016-04-21 22:50 | REPUSA ---
CLINICAL HISTORY: WEAKNESS, BACK PAIN, HX OF LYMPHOMA TECHNIQUE: Multiple axial, sagittal and coronal CT images were obtained through the abdomen and pelvi s without administration of oral or IV contrast material. COMMENTS: The liver is of uniform attenuation without mass or defect. There is no intra or extrahepatic biliary ductal dilatation. The spleen is normal. The gallbladder contains several calcified gallstones. The pancreas is of normal contour and attenuation characteristics. There is no evidence of adrenal mass. The kidneys are normal in size, shape and configuration. No renal or ureteral calculi are identified. There is no hydroureter or hydronephrosis. There is no evidence for appendicitis. There is no bowel wall thickening. No evidence for small or la rge bowel obstruction. There is no evidence of abdominal ascites or lymphadenopathy. There is no evidence of intrinsic or extrinsic bladder mass. There is no pelvic ascites or lymphadeno marilynn. IUD is in place. The uterus and ovaries are unremarkable. Images of the lung bases show no evidence of pleural or parenchymal mass. There are no pleural effusi ons. The bony structures are free of lytic or blastic lesions. Multilevel degenerative changes are seen in volving the thoracolumbar spine. Scattered calcifications are seen involving the aorta and major branches compatible with atherosclero sis. IMPRESSION: Gallstones. No acute abdominal pelvic pathology. Thank you for your kind referral of this patient.
[2016-04-21] MEDS ORDERED: LEVOTHYROXINE 100 MCG (0.1MG) VIAL IV ONE (23:30)
[2016-04-21] MEDS: HYDROCORTISONE 100 MG/2 ML VIAL (J1720) IV SCH (23:52)
[2016-04-22] VITALS (28 sets, daily range): BP systolic 100–187; BP diastolic 55–92
[2016-04-22] MEDS ORDERED: LIOTHYRONINE 25 MCG TAB PO ONE ×2 (00:45→01:15)
[2016-04-22] MEDS ORDERED: LEVOTHYROXINE 0.1 MG TAB (100 MCG) PO SCH (06:00)
[2016-04-22] MEDS: NS 1,000 ML IV SCH ×2 (06:19→08:26)
[2016-04-22 06:48] LABS: DIFF SLIDE NUMBER 75; MEAN CORPUSCULAR HEMOGLOBIN 34.6 pg (27.0-33.0); MEAN CORPUSCULAR HGB CONC 34.9 g/dl (32.0-36.5); RED CELL DISTRIBUTION WIDTH 21.5 % (11.5-14.5); WHITE BLOOD COUNT 1.2 K/mm3 (4.0-10.0)
[2016-04-22 06:58] LABS: PLATELET COUNT, AUTOMATED 74 k/mm3 (150-450)
[2016-04-22 07:06] LABS: ANION GAP 11 MEQ/L (8-16); BLOOD UREA NITROGEN 18 MG/DL (7-18); CALCIUM LEVEL 8.5 MG/DL (8.5-10.1); CARBON DIOXIDE LEVEL 22 MEQ/L (21-32); CHLORIDE LEVEL 109 MEQ/L (98-107); CREATININE FOR GFR 1.54 MG/DL (0.55-1.02); GLOMERULAR FILTRATION RATE 36.7 (>51); GLUCOSE, FASTING 124 MG/DL (70-105); SODIUM LEVEL 142 MEQ/L (136-145)
--- NOTE | 2016-04-22 07:31 | ECGEPIP ---
Stationary ECG Study [facility] - ED Test Date: 2016-04-21 Pat Name: KB ENGLISH Department: Room: - Gender: F Hem Inspector: yao : [id number] Requested By: FLORY FARAH Order Number: [id number] Reading MD: Aarti Vasquez Measurements Intervals [place] Rate: 59 P: 51 NC: 173 QRS: 42 QRSD: 86 T: 180 QT: 393 QTc: 390 Interpretive Statements SINUS BRADYCARDIA NSTTW ABNORMALITY LOW VOLTAGE LIMB PRWP NO PRIOR FOR COMPARISON Electronically Signed On 04-22-2016 7:31:05 EST by Aarti Vasquez
[2016-04-22 07:57] LABS: ANISOCYTOSIS 1+; BANDS 3 % (< 11); BASOPHILS 1 % (0-4); BLAST CELLS 1 % (0-0)
[2016-04-22 07:59] LABS: POIKILOCYTOSIS 1+
[2016-04-22] MEDS ORDERED: cefTRIAXone SOD 1 GM in D5W MINI-BAG PLUS 50 ML IV SCH (08:00)
[2016-04-22] MEDS: ACETAMINOPHEN TAB 650MG DOSE (2X325MG) PO PRN (08:25)
[2016-04-22] MEDS: HYDROCORTISONE 100 MG/2 ML VIAL (J1720) IV SCH ×3 (08:25→23:17)
[2016-04-22] MEDS: ASCORBIC ACID 500 MG TAB PO SCH ×2 (08:25→17:27)
[2016-04-22] MEDS: SENOKOT S TAB PO SCH ×2 (08:25→20:14)
[2016-04-22] MEDS: FERROUS SULFATE 325MG TAB PO SCH ×2 (08:25→20:14)
[2016-04-22] MEDS: DOCUSATE SODIUM 100 MG CAP PO SCH ×2 (08:25→20:14)
[2016-04-22 08:36] LABS: FREE T4 0.33 NG/DL (0.76-1.46)
[2016-04-22] MEDS ORDERED: ISOSORBIDE MON. (IMDUR) 30 MG XR TAB PO SCH (09:00)
[2016-04-22] MEDS ORDERED: LISINOPRIL 10 MG TAB PO SCH (09:00)
--- NOTE | 2016-04-22 11:55 | IPN ---
DATE: 04/21/2016 SUBJECTIVE: I was called by nursing staff due to the patient's persistent bradycardia and hypothermia. Heart rate has been maintaining in the 40s. The patient also states that she has been more constipated recently. As mentioned in history and physical, she has not been taking any of her medications including her thyroid medication. She is supposed to take levothyroxine 175 mcg daily. PHYSICAL EXAMINATION: VITAL SIGNS: Blood pressure 156/72, heart rate in the 40s. She did have one episode where her heart rate was in the 60s but that was only after orthostatics were checked. Her pulse oximetry is 100% on room air, temperature 95.6, initially it was 95.4 when transferred to the unit. Respiratory rate 20. GENERAL: The patient was laying in bed at approximately a 30 degree angle, comfortable, in no acute respiratory distress. Daughter at bedside. She appears very pale. Appears her stated age. HEENT: Normocephalic, atraumatic. Upper portion with denture in place. Palate is pale. HEART: Bradycardic, distant sounding, could not appreciate any murmurs, rubs or gallops. LUNGS: Diminished in bilateral lung bases. ABDOMEN: Obese but nontender, nondistended. Hypoactive bowel sounds. EXTREMITIES: No pedal edema. Pedal pulses are present bilaterally. There are ecchymotic changes in bilateral lower extremities which reportedly were due to the patient being accidentally kicked while playing with her 2-year-old grandson. LABORATORY DATA: BNP 15.1, TSH 133, free T4 0.19. Thyroxine less than 0.5. The patient is pancytopenic with hemoglobin 5.3. IMPRESSION AND PLAN: With her symptoms of bradycardia, hypothermia, constipation and her abnormal thyroid study, it is concerning for myxedema. Have ordered cortisol level. Stress-dose steroids, hydrocortisone 100 every eight hours, ordered levothyroxine 200 mcg to be given. T3 will also be given due to its rapid onset and T4 to T3 conversion will be impaired due to current condition, T3 dosing of IV is not available at this time. The patient will be given 6.25 mcg of liothyronine because recommended starting by mouth dose of 5 mcg is not currently available. Continue to monitor the patient closely for myxedema coma. Stop Imdur for now. Hold narcotics. Monitor respiratory symptoms. My preceptor for this patient encounter was Dr. Rohini Faustin. The preceptor was physically present in the building during the encounter and was fully available as needed. All aspects of the patient interview, examination, medical decision making process, and medical care plan development were reviewed and approved by the preceptor. The preceptor is aware and concurs with the plan as stated in the body of this note and will attest to such by his/her co-signature. KELVIN
--- NOTE | 2016-04-22 13:12 | ECHO ---
DATE OF PROCEDURE: 04/22/2016 AGE: 60 GENDER: Female. HEIGHT: 66 inches WEIGHT: 250 pounds BODY SURFACE AREA: 2.2 sq m INPATIENT: Intensive care unit (ICU), room 3203. REFERRING PHYSICIANS: Dr. Sasha Barth and Dr. Darrick Salguero. INDICATION: Abnormal EKG/bradycardia. MEASUREMENTS: 2D MEASUREMENTS: RV: 3.7 cm LV: 4.6 cm Septum: 1.1 cm Posterior wall: 1.1 cm Aortic root: 2.9 cm LA: 3.6 cm LVEF: 65% DOPPLER MEASUREMENTS: AV: 1.0 m/s LVOT: 0.9 m/s MV-E: 114 A: 67 E/A ratio: 1.7 Early mitral deceleration time: 208 ms E prime: 10.2 A prime: 7.5 E/E prime ratio: 11.2 PV: 0.8 m/s Pulmonary artery acceleration time: 103 ms RVSP: 35-40 IVC: 2.2 cm COMMENTS: This study was marked as a stat. Sinus bradycardia rate averaging 55 bpm. No intraventricular conduction disturbance. Technically challenging in light of the patient's body habitus, but diagnostically useful information was still obtained. Normal cardiac chamber sizes and left ventricle (LV) wall thickness. On real-time imaging from the parasternal and apical projections, wall motion was symmetrical and normal. Normal-appearing mitral valvular apparatus and leaflet excursion with no posterior systolic buckling. Three equal size aortic cusps of normal thickness and cusp separation. Normal aortic root size. No apparent intracardiac mass or pericardial effusion. Color flow Doppler study taken from the parasternal and apical projections showed trace mitral, very mild tricuspid, but no aortic insufficiency. Guided continuous wave Doppler of her aortic valve showed a normal peak systolic velocity against LV outflow tract obstruction. Pulsed and continuous wave Doppler of her LV inflow tract taken from the apical four-chamber projection showed normal diastolic filling velocities against mitral stenosis. There was a normal filling pattern and early mitral deceleration time also against LV diastolic dysfunction. Her current calculated pulmonary artery wedge pressure was 17 mmHg. Pulsed and continuous wave Doppler of her pulmonary trunk showed a normal peak systolic velocity against right ventricular (RV) outflow tract obstruction. Her pulmonary artery acceleration time was somewhat abbreviated suggestive a mildly elevated pulmonary vascular resistance. Guided continuous wave Doppler of her tricuspid valve allowed our estimation of her right ventricular systolic pressure (mild to moderately increased). Her inferior vena cava was mildly dilated with reduced respiratory collapse suggestive of an elevated central venous pressure. CONCLUSIONS: Technically difficult study. Normal left ventricular size, wall thickness, and wall motion. Normal left atrial size and Doppler assessment of LV diastolic function. Current estimated pulmonary artery wedge pressure upper limits of normal to slightly elevated. Normal right heart chamber sizes but Doppler evidence of mild-moderate pulmonary hypertension. Mildly dilated inferior vena cava (IVC) with reduced respiratory collapse suggestive of a slightly elevated central venous pressure.
--- NOTE | 2016-04-22 14:12 | ECGEPIP ---
Stationary ECG Study [facility] Test Date: 2016-04-22 Pat Name: KB ENGLISH Department: Room: [place] [address] Gender: F Aged Or Disabled Care Worker: PONCHO : [id number] Requested By: RAY Carlos Order Number: [id number] Reading MD: Fritz Tristan Measurements Intervals [place] Rate: 56 P: 42 NJ: 176 QRS: 48 QRSD: 102 T: 179 QT: 446 QTc: 432 Interpretive Statements SINUS BRADYCARDIA INDETERMINATE AXIS Low QRS complex voltage in the limb leads Nonspecific ST-T wave abnormalities Electronically Signed On 04-22-2016 14:12:41 EST by Fritz Tristan
--- NOTE | 2016-04-22 16:38 | DS.PDOC ---
Discharge Summary General Date of Admission Apr 21, 2016 at 17:43 Date of Discharge 04/22/16 Attending Physician: ED IBRAHIM MD Discharge Summary PROCEDURES PERFORMED DURING STAY: None. COMPLICATIONS/CHIEF COMPLAINT: Generalized weakness, syncope ADMISSION/DISCHARGE DIAGNOSES: 1. Severe hypothyroidism 2. Sinus bradycardia in the 40s/hypothermia secondary to severe hypothyroidism 3. Symptomatic anemia 4. Pancytopenia 5. Acute kidney injury 6. History of aggressive B-cell lymphoma 7. Asymptomatic bacteriuria 8. Hypertension 9. History of hypothyroidism status post radiation to the head and neck 10. Anxiety 11. Gout HISTORY OF PRESENT ILLNESS/HOSPITAL COURSE: This is a 60-year-old female with a past medical history of aggressive B-cell lymphoma status post chemotherapy and radiation to the head and neck in 2012, was in remission, who has not seen a physician, nor taking any of her medications in 12 months. She presents to [place], [place] from [facility] to visit her daughter, when the family became concerned of her increasing generalized weakness and multiple syncopal episodes. The patient had been reported having symptoms consistent with orthostatic hypotension over the past 3 weeks prior to presentation. While in the emergency department, the patient was found to be severely anemic with a hemoglobin of 5. She was also found to be pancytopenic with an unknown baseline. She has not received any recent chemotherapy agent. The patient was transfused 4 units of PRBC and her hemoglobin has remained stable. No hematemesis/hemoptysis/hematochezia/melanotic stools noted. Shortly after her admission, the patient was noted to be severely bradycardic in the 40s as well as hypothermic. Given her TSH of 133, and extremely low T3/ T4, patient was treated with IV levothyroxine 200 g, as well as liothyronine 6.25 g. Cortisol level was ordered and the patient was started on stress dose steroids in the meantime. The patient's heart rate did improve to the high 50s , low 60s. She is in sinus rhythm. She denied any chest pain/palpitations/ shortness of breath. Her symptoms of orthostatic hypotension have resolved. The patient did well with this above therapy, and her TSH is trending down to 73. Although the patient has significantly improved with this above therapy, specialty support is limited at this time as there is no barrel painter to assist with the titration of the levothyroxine, liothyronine. I have spoken to Dr. Frausto at [facility], and I appreciate his time and acceptance of this patient so that an endocrinology consultation may be obtained to assist in further management of this patient. With the patient's pancytopenia and history aggressive B-cell lymphoma, she may need a bone marrow biopsy and an hematology/oncology consult while at [facility]. DISCHARGE MEDICATIONS: Please see below. ALLERGIES: Please see below. PHYSICAL EXAMINATION ON DISCHARGE: Vitals: (see below) General: No acute distress, laying comfortably in bed. HEENT: Moist mucous membranes. Neck: No JVD or lymphadenopathy Cardiac: Bradycardic. Pulm: Clear to auscultation b/l. No wheezing, rhonchi Abd: NT/ND + BS. Obese. Ext: No edema or cyanosis. Nonpitting edema. Dry skin. LABORATORY DATA: Please see below. IMAGING: CT lumbar spine 04/21/16 IMPRESSION: 1. No fracture or spondylolisthesis. 2. Straightening of lumbar lordosis is seen, suggesting muscular spasm. 3. Mild multilevel degenerative spondylosis. CT Thoracic spine 04/21/16 IMPRESSION: Mild multilevel degenerative changes are present. No evidence of acute pathology. CT Abd/pelvis 04/21/16 IMPRESSION: Gallstones. No acute abdominal pelvic pathology. CT Chest 04/21/16 IMPRESSION: No evidence of acute thoracic pathology. CT Neck 04/21/16 IMPRESSION: No acute pathology. Renal U/s 04/21/16 IMPRESSION: Normal study. VTE Prophylaxis ordered?: Yes Echocardiogram 04/22/16 CONCLUSIONS: Technically difficult study. Normal left ventricular size, wall thickness, and wall motion. Normal left atrial size and Doppler assessment of LV diastolic function. Current estimated pulmonary artery wedge pressure upper limits of normal to slightly elevated. Normal right heart chamber sizes but Doppler evidence of mild-moderate pulmonary hypertension. DISCHARGE CONDITION: Stable DISPOSITION: Transfer to [facility] ACTIVITY: As tolerated DIET: Low-sodium DISCHARGE PLAN AND INSTRUCTIONS: 1. Follow-up with primary care physician, oncology, endocrinology as directed when discharged from [facility]. TIME SPENT ON DISCHARGE: Greater than 30 minutes. Vital Signs/I&Os Vital Signs Date Time Temp Pulse Resp B/P Pulse Ox O2 Delivery O2 Flow Rate FiO2 04/22/16 12:11 59 16 181/87 97 04/22/16 12:00 97.0 04/22/16 08:00 Room Air 04/22/16 06:21 2.0 I&O- Last 24 Hours up to 6 AM 04/22/16 05:59 Intake Total 1136 ml Output Total 375 ml Balance 761 ml Laboratory Data Labs 24H Laboratory Tests 2 04/21/16 16:51: Urine Amorphous Sediment , Urine Appearance CLEAR, Urine Color STRAW, Urine pH 6.0, Urine Specific [place] 1.004, Urine Protein NEGATIVE, Urine Glucose (UA) NEGATIVE, Urine Ketones NEGATIVE, Urine Urobilinogen 0.2, Urine Bilirubin NEGATIVE, Urine Leukocyte Esterase 3+H, Urine Bacteria (Auto) 1+H, Urine Blood NEGATIVE, Urine Calcium Carbonate Cryst(Auto) , Urine Calcium Oxalate Cryst ( Auto) , Urine Calcium Phosphate Tammy (Auto) , Urine Cellular Casts , Urine Cystine Crystals , Urine Granular Casts (Auto) , Urine Hyaline Casts (Auto) 0, Urine Leucine Crystals , Urine Mucus (Auto) , Urine Myoglobin NEGATIVE, Urine Nitrite NEGATIVE, Urine Oval Fat Bodies (Auto) , Urine RBC (Auto) 3, Urine Random Creatinine 56.7, Urine Random Sodium 41, Urine Renal Epithelial Cells , Urine Sperm (Auto) , Urine Squamous Epithelial Cells 2, Urine Transitional Epithelial Cells , Urine Trichomonas (Auto) , Urine Triple Phosphate Cryst (Auto ) , Urine Tyrosine Crystals , Urine Uric Acid Crystals (Auto) , Urine WBC (Auto ) 20H, Urine Waxy Casts (Auto) , Urine Yeast-Like Cells (Auto) 04/22/16 00:12: Creatine Kinase MB 5.5H, Creatine Kinase MB Relative Index 0.64, Total Creatine Kinase 852H, Troponin I < 0.02 04/22/16 03:54: Bedside Glucose (Misc Panel) 127H 04/22/16 06:29: Creatine Kinase MB 5.5H, Creatine Kinase MB Relative Index 0.69, Total Creatine Kinase 794H, Troponin I < 0.02, Anion Gap 11, Anisocytosis 1+, Atypical Lymphocytes 3, Band Neutrophils 3, Basophils (Manual) 1, Blastocytes 1H, Blood Urea Nitrogen 18, Creatinine 1.54H, Sodium Level 142, Potassium Level 4.0, Chloride Level 109H, Carbon Dioxide Level 22, Calcium Level 8.5, Glomerular Filtration Rate 36.7L, Lymphocytes (Manual) 44, Macrocytosis 1+, Monocytes ( Manual) 1, Myelocytes 1H, Neutrophils 46, Platelet Estimate DECREASED, Poikilocytosis 1+ 04/22/16 08:01: Free Thyroxine 0.33L, Free Triiodothyronine < 0.5L, Thyroid Stimulating Hormone (TSH) 73.100H 04/22/16 12:27: Creatine Kinase MB 5.5H, Creatine Kinase MB Relative Index 0.59, Total Creatine Kinase 921H, Troponin I < 0.02 CBC/BMP Laboratory Tests 04/22/16 00:12 04/22/16 06:29 Calcium Level 8.5, Total Creatine Kinase 794 H, Red Blood Count 2.57 L, Mean Corpuscular Volume 99.0 #H, Mean Corpuscular Hemoglobin 34.6 H, Mean Corpuscular Hemoglobin Concent 34.9, Red Cell Distribution Width 21.5 H 04/22/16 12:27 FSBS Laboratory Tests Test 04/22/16 03:54 Range/Units Bedside Glucose (Misc Panel) 127 70-105 MG/DL Microbiology Microbiology 04/22/16 Blood Culture, Received Pending 04/22/16 Blood Culture, Received Pending 04/21/16 MRSA Screen, Received Pending 04/21/16 Urine Culture, Received Pending Medications Scheduled Levothyroxine Sodium (Synthroid) 175 Mcg Tab 175 MCG PO DAILY Scheduled PRN Baclofen (Baclofen) 10 Mg Tab 10 MG PO TID PRN PRN SPASMS Diphenhydramine HCl (Benadryl) 25 Mg Cap 25 MG PO Q6H PRN PRN ALLERGIES Allergies Coded Allergies: Contrast Media (Unverified Allergy, Unknown, HIVES, 04/21/16) ED IBRAHIM MD Apr 22, 2016 16:38
[2016-04-22] MEDS ORDERED: **hydrALAZINE HCL** 25 MG TAB NG SCH (16:45)
[2016-04-22] MEDS ORDERED: HYDR25TA NG (16:48)
[2016-04-22] MEDS ORDERED: hydrALAZINE INJ 20 MG/ML VIAL As Ordered ONE (17:23)
[2016-04-22] MEDS ORDERED: hydrALAZINE INJ 20 MG/ML VIAL IV ONE (17:35)
[2016-04-22 18:21] LABS: MEAN CORPUSCULAR HEMOGLOBIN 34.3 pg (27.0-33.0); MEAN CORPUSCULAR HGB CONC 34.7 g/dl (32.0-36.5); MEAN CORPUSCULAR VOLUME 98.8 fl (80.0-96.0); RED CELL DISTRIBUTION WIDTH 21.3 % (11.5-14.5); WHITE BLOOD COUNT 1.6 K/mm3 (4.0-10.0)
[2016-04-22 18:57] LABS: BANDS 1 % (< 11)
[2016-04-22 18:58] LABS: ANISOCYTOSIS 2+
[2016-04-22 18:59] LABS: POIKILOCYTOSIS 1+
[2016-04-22] MEDS: LEVOTHYROXINE 100 MCG (0.1MG) VIAL IV SCH (20:13)
[2016-04-22] MEDS: LIOTHYRONINE 25 MCG TAB PO SCH (20:14)
[2016-04-22] MEDS ORDERED: SODIUM CHLORIDE NASAL 0.65% SPRAY BTL (OCEAN) PRN (20:30)
[2016-04-23 00:01] VITALS: BP 149/77
[2016-04-23 04:02] VITALS: BP 126/60
[2016-04-23 06:18] LABS: DIFF SLIDE NUMBER 68; MEAN CORPUSCULAR HEMOGLOBIN 35.3 pg (27.0-33.0); MEAN CORPUSCULAR HGB CONC 35.8 g/dl (32.0-36.5); MEAN CORPUSCULAR VOLUME 98.7 fl (80.0-96.0); RED CELL DISTRIBUTION WIDTH 21.7 % (11.5-14.5); WHITE BLOOD COUNT 1.6 K/mm3 (4.0-10.0)
[2016-04-23 06:21] LABS: PLATELET COUNT, AUTOMATED 71 k/mm3 (150-450)
[2016-04-23 06:49] LABS: CALCIUM LEVEL 8.8 MG/DL (8.5-10.1); CREATININE FOR GFR 1.32 MG/DL (0.55-1.02); FREE T4 0.5 NG/DL (0.76-1.46); GLOMERULAR FILTRATION RATE 43.9 (>51); POTASSIUM SERUM 3.3 MEQ/L (3.5-5.1)
[2016-04-23] MEDS ORDERED: POTASSIUM CHLORIDE 10 MEQ SR TABLET PO ONE (07:45)
[2016-04-23 08:00] VITALS: BP 124/61
[2016-04-23 08:09] LABS: EOSINOPHILS 3 % (0-5); NUCLEATED RED BLOOD CELL 3 % (0-0)
[2016-04-23 08:10] LABS: ANISOCYTOSIS 2+
[2016-04-23] MEDS: SENOKOT S TAB PO SCH ×2 (08:26→21:12)
[2016-04-23] MEDS: FERROUS SULFATE 325MG TAB PO SCH ×2 (08:26→21:12)
[2016-04-23] MEDS: HYDROCORTISONE 100 MG/2 ML VIAL (J1720) IV SCH ×3 (08:26→23:27)
[2016-04-23] MEDS: ASCORBIC ACID 500 MG TAB PO SCH ×2 (08:26→17:04)
[2016-04-23] MEDS: **hydrALAZINE HCL** 25 MG TAB NG SCH ×2 (08:27→17:04)
[2016-04-23] MEDS: DOCUSATE SODIUM 100 MG CAP PO SCH ×2 (08:27→21:12)
[2016-04-23 10:04] LABS: CORTISOL BASELINE 10.3 UG/DL (4.3-22.4); FOLATE > 24.0 NG/ML; VITAMIN B12 LEVEL 1073 PG/ML
[2016-04-23 12:00] VITALS: BP 173/79
--- NOTE | 2016-04-23 14:06 | IPNPDOC ---
Text Note Date of Service The patient was seen on 04/23/16 at 14:02. NOTE Subjective: Patient states she feels much improved. Denies any chest pain/ shortness of breath/palpitations. Objective: Vitals: (see below) General: No acute distress, laying comfortably in bed. HEENT: Moist mucous membranes. Neck: No JVD or lymphadenopathy Cardiac: Bradycardic. Pulm: Clear to auscultation b/l. No wheezing, rhonchi Abd: NT/ND + BS. Obese. Ext: No edema or cyanosis. Nonpitting edema. Dry skin. Labs (see below) Images: IMAGING: CT lumbar spine 04/21/16 IMPRESSION: 1. No fracture or spondylolisthesis. 2. Straightening of lumbar lordosis is seen, suggesting muscular spasm. 3. Mild multilevel degenerative spondylosis. CT Thoracic spine 04/21/16 IMPRESSION: Mild multilevel degenerative changes are present. No evidence of acute pathology. CT Abd/pelvis 04/21/16 IMPRESSION: Gallstones. No acute abdominal pelvic pathology. CT Chest 04/21/16 IMPRESSION: No evidence of acute thoracic pathology. CT Neck 04/21/16 IMPRESSION: No acute pathology. Renal U/s 04/21/16 IMPRESSION: Normal study. VTE Prophylaxis ordered?: Yes Echocardiogram 04/22/16 CONCLUSIONS: Technically difficult study. Normal left ventricular size, wall thickness, and wall motion. Normal left atrial size and Doppler assessment of LV diastolic function. Current estimated pulmonary artery wedge pressure upper limits of normal to slightly elevated. Normal right heart chamber sizes but Doppler evidence of mild-moderate pulmonary hypertension. Assessment/Plan 1. Severe hypothyroidism, ? myxedema coma -was noted to be severely bradycardic in the 40s as well as hypothermic. Given her TSH of 133, and extremely low T3/ T4, patient was treated with IV levothyroxine 200 g, as well as liothyronine 6.25 g. Cortisol level was ordered and the patient was started on stress dose steroids in the meantime. The patient's heart rate did improve to the high 50s , low 60s. She is in sinus rhythm. Thyroid function tests improving. We do not have endocrinology support to assist us with titrating the above medications. Awaiting bed placement so the [facility]. 2. Sinus bradycardia in the 40s/hypothermia secondary to severe hypothyroidism; heart rate is much improved and patient's normal sinus rhythm at this time. 3. Symptomatic anemia, status post 3 units PRBC. Hemoglobin stable. No melanotic stools/hematochezia/hematemesis/hemoptysis. 4. Pancytopenia - B12/anemia panel pending. Patient maybe a bone marrow biopsy. History of aggressive B-cell lymphoma. We'll ultimately need a heme on consultation. 5. Acute kidney injury, improved. Avoid nephrotoxins. 6. History of aggressive B-cell lymphoma 7. Asymptomatic bacteriuria 8. Hypertension, controlled. Continue hydralazine 9. History of hypothyroidism status post radiation to the head and neck 10. Anxiety 11. Gout Awaiting bed placement at [facility]. VS,Fishbone, I+O VS, Fishbone, I+O Laboratory Tests 04/22/16 18:10 04/23/16 00:01 04/23/16 06:00 Calcium Level 8.8, Red Blood Count 2.62 L, Mean Corpuscular Volume 98.7 H, Mean Corpuscular Hemoglobin 35.3 H, Mean Corpuscular Hemoglobin Concent 35.8, Red Cell Distribution Width 21.7 H 04/23/16 12:12 Vital Signs Date Time Temp Pulse Resp B/P Pulse Ox O2 Delivery O2 Flow Rate FiO2 04/23/16 12:00 97.5 64 24 173/79 99 Room Air 04/22/16 06:21 2.0 I&O- Last 24 Hours up to 6 AM 04/23/16 05:59 Intake Total 2130 ml Output Total 1750 ml Balance 380 ml ED IBRAHIM MD Apr 23, 2016 14:06
[2016-04-23 16:00] VITALS: BP 131/69
[2016-04-23 20:00] VITALS: BP 146/100
[2016-04-23] MEDS: LEVOTHYROXINE 100 MCG (0.1MG) VIAL IV SCH (21:11)
[2016-04-23] MEDS: ACETAMINOPHEN TAB 650MG DOSE (2X325MG) PO PRN (21:11)
[2016-04-23] MEDS: LIOTHYRONINE 25 MCG TAB PO SCH (21:12)
--- NOTE | 2016-04-23 22:49 | EDDOCDS ---
Physician Documentation [facility] Name: Anjelica Jeronimo Age: 60 yrs Sex: Female : 1955 Arrival Date: 04/21/2016 Time: 14:05 Bed 10 Private MD: NO PRIMARY PHYSICIAN, . Disposition: 04/21/16 17:49 Hospitalization ordered by Hilda Fine for Inpatient Admission. Preliminary diagnosis are Pancytopenia, Acute kidney failure, Hypothyroidism, unspecified, Syncope and collapse, Acute pain, not elsewhere classified - exacerbation of chronic back pain. - Bed requested for M ICU. - Status is Inpatient Admission. tm5 - Condition is Stable. - Problem is new. - Symptoms are unchanged. Historical: - Allergies: IV Dye; - Home Meds: 1. Synthroid 175 mcg Oral tab 1 tab once daily 2. baclofen 10 mg Oral tab as needed - PMHx: Hypothyroidism; lymphoma; - PSHx: infusaport insertion; - Social history: Smoking status: Patient states was never smoker of tobacco. No barriers to communication noted, The patient speaks fluent [place], Speaks appropriately for age. - Family history: Not pertinent. - : The pt / caregiver states he / she is not on anticoagulants. Home medication list is obtained from the patient. - Exposure Risk Screening:: None identified. Vital Signs: 04/21 14:08 BP 158 / 73; Pulse 88; Resp 18; Temp 97.3; Weight 113.4 kg / 250 lbs; Height 5 ft. 6 elp in. (167.64 cm); Pain 8/10; 14:35 BP 168 / 74 (auto/); pml 14:38 Pulse 62 MON; Pulse Ox 95% ; pml 14:50 BP 158 / 89 (auto/); pml 14:51 Pulse 60 MON; Pulse Ox 100% ; pml 15:05 BP 155 / 82 (auto/); pml 15:06 Pulse 56 MON; Pulse Ox 97% ; pml 15:20 BP 167 / 87 (auto/); pml 15:21 Pulse 56 MON; Pulse Ox 99% ; pml 15:35 BP 158 / 93 (auto/); pml 15:35 Pulse 54 MON; Pulse Ox 97% ; pml 15:50 BP 166 / 84 (auto/); pml 15:51 Pulse 64 MON; Pulse Ox 95% ; pml 16:05 BP 151 / 86 (auto/); pml 16:06 Pulse 58 MON; Pulse Ox 100% ; pml 16:20 BP 134 / 75 (auto/); pml 16:20 Pulse 62 MON; Pulse Ox 100% ; pml 16:35 Pulse 74 MON; pml 16:35 BP 174 / 91 (auto/); pml 16:50 Pulse 64 MON; Pulse Ox 98% ; pml 16:50 BP 164 / 78 (auto/); pml 17:05 Pulse 66 MON; Pulse Ox 96% ; pml 17:05 BP 150 / 80 (auto/); pml 17:14 Pulse 54 MON; Pulse Ox 96% ; pml 17:14 BP 149 / 81 (auto/); pml 17:20 Pulse 58 MON; Pulse Ox 95% ; pml 17:20 BP 156 / 108 (auto/); pml 17:30 Pulse 56 MON; Pulse Ox 100% ; pml 17:30 BP 166 / 81 (auto/); pml 17:35 Pulse 54 MON; Pulse Ox 100% ; pml 17:35 BP 167 / 94 (auto/); pml 17:50 BP 163 / 88 (auto/); pml 17:50 Pulse 54 MON; Pulse Ox 95% ; pml 18:05 Pulse 50 MON; Pulse Ox 99% ; pml 18:05 BP 150 / 77 (auto/); pml 18:31 Pulse 62 MON; Pulse Ox 100% ; pml 18:32 BP 185 / 85 (auto/); pml 18:35 Pulse 58 MON; Pulse Ox 99% ; pml 18:35 BP 175 / 91 (auto/); pml 19:05 BP 217 / 86 (auto/); jp6 19:05 Pulse 54 MON; Pulse Ox 98% ; jp6 19:20 BP 193 / 89 (auto/); jp6 19:21 Pulse 54 MON; Pulse Ox 99% ; jp6 19:35 BP 172 / 82 (auto/); jp6 19:35 Pulse 58 MON; Pulse Ox 99% ; jp6 19:50 BP 192 / 94 (auto/); jp6 19:50 Pulse 58 MON; Pulse Ox 99% ; jp6 19:55 BP 146 / 83 (auto/); jp6 19:55 Pulse 58 MON; Pulse Ox 100% ; jp6 19:55 Resp 18; Temp 95.8(O); Pain 7/10; jp6 20:20 BP 132 / 80 (auto/); jp6 20:20 Pulse 54 MON; Pulse Ox 94% ; jp6 20:50 BP 136 / 77 (auto/); jp6 20:50 Pulse 50 MON; Pulse Ox 92% ; jp6 20:50 Pulse Ox 98% on R/A; Pain 5/10; jp6 14:08 Body Mass Index 40.35 (113.40 kg, 167.64 cm) elp MDM: 15:36 Agricultural Equipment Salesperson/Pulse Ox/q 15 min VS ordered. le 15:36 Accucheck ordered. le 15:36 IV Saline Lock ordered. le 15:36 Rhythm Strip to chart ordered. le 15:37 Basic Metabolic Profile Ordered. EDMS 15:37 CBC with Diff Ordered. EDMS 15:37 Cardiac Injury Profile Ordered. EDMS 15:37 Thyroid Stimulating Hormone Ordered. EDMS 15:37 Troponin Ordered. EDMS 15:37 Urinalysis Ordered. EDMS 15:37 Liver Profile Ordered. EDMS 15:37 CRP Ordered. EDMS 15:37 ESR Ordered. EDMS 15:37 ECG WITH READING ER PHYS+CARDIAG ordered. EDMS 15:37 Chest, 2 View (pa\E\lat) Ordered. EDMS 15:46 D-Dimer Quant Ordered. EDMS 15:53 DIFFERENTIAL NO CHARGE Ordered. EDMS 15:53 PLATELET ESTIMATE Ordered. EDMS 15:55 BED REQUEST+ADM ordered. EDMS 15:58 Transfuse 4 units PRBCs ordered. le 15:58 CBC with Diff Reviewed. le 15:59 Type and Cross, Packed Cells Ordered. EDMS 16:00 TYPE & SCREEN Ordered. EDMS 16:20 morphine 4 mg IVP every 15 minutes; Document pain score/vitals after each dose (Hold if le SBP < 90mmHg) x2 ordered. 16:24 Basic Metabolic Profile Reviewed. le 16:24 Liver Profile Reviewed. le 16:24 Troponin Reviewed. le 16:24 CRP Reviewed. le 16:24 D-Dimer Quant Reviewed. le 16:24 TYPE & SCREEN Reviewed. le 16:27 NS 0.9% 1000 ml IV at bolus once ordered. le 16:28 Basic Metabolic Profile Reviewed. le 16:28 Cardiac Injury Profile Reviewed. le 16:28 Thyroid Stimulating Hormone Reviewed. le 16:28 Liver Profile Reviewed. le 16:28 Troponin Reviewed. le 16:28 CRP Reviewed. le 16:28 TYPE & SCREEN Reviewed. le 16:28 Urine Myoglobin Screen Ordered. EDMS 16:30 Financial registration complete. [id number] 16:37 [facility] Agreement was scanned into [employer] and attached to record. [email or web address] 16:56 THYROXINE (T4) Ordered. EDMS 16:56 T UPTAKE Ordered. EDMS 17:31 Basic Metabolic Profile Reviewed. le 17:31 CBC with Diff Reviewed. le 17:31 Cardiac Injury Profile Reviewed. le 17:31 Thyroid Stimulating Hormone Reviewed. le 17:31 Urinalysis Reviewed. le 17:31 Liver Profile Reviewed. le 17:31 ESR Reviewed. le 17:31 THYROXINE (T4) Reviewed. le 17:31 T UPTAKE Reviewed. le 17:31 Troponin Reviewed. le 17:31 CRP Reviewed. le 17:31 PLATELET ESTIMATE Reviewed. le 17:31 TYPE & SCREEN Reviewed. le 17:31 Urine Myoglobin Screen Reviewed. le 17:31 Chest, 2 View (pa\E\lat) Reviewed. le 17:49 PHYSICAL THERAPY EVAL & TREAT ordered. EDMS 17:50 Admission / Observation Status ordered. EDMS 17:50 NO ADDED SALT DIET ordered. EDMS 17:53 ELECTROCARDIOGRAM ADULT ordered. EDMS 17:55 URINE CULTURE Ordered. EDMS 18:02 FERRITIN Ordered. EDMS 18:03 TOTAL IRON BINDING CAPACIT Ordered. EDMS 18:04 BRAIN NATIURETIC PEPTIDE Ordered. EDMS 18:04 SODIUM,RANDOM URINE Ordered. EDMS 18:05 CREATININE,RANDOM URINE Ordered. EDMS 18:05 RENAL US Ordered. EDMS 18:55 LACTATE DEHYDROGENASE Ordered. EDMS 19:33 BASIC METABOLIC PROFILE Ordered. EDMS 19:33 CBC WITH DIFFERENTIAL Ordered. EDMS 19:33 CARDIAC MARKER PANEL Ordered. EDMS 19:33 CARDIAC MARKER PANEL Ordered. EDMS 19:33 CARDIAC MARKER PANEL Ordered. EDMS 19:33 HEMOGLOBIN & HEMATOCRIT Ordered. EDMS 19:33 HEMOGLOBIN & HEMATOCRIT Ordered. EDMS 19:33 HEMOGLOBIN & HEMATOCRIT Ordered. EDMS 19:33 HEMOGLOBIN & HEMATOCRIT Ordered. EDMS 20:08 Ondansetron 4 mg IVP once ordered. le 20:08 ECHOCARD,DOPPLER/COLOR FLOW ordered. EDMS 20:08 CT Chest without contrast Ordered. EDMS 20:08 CT ABD & PELVIS W/O CONTRAST Ordered. EDMS 20:24 CT Spine, lumbar w/o contrast Ordered. EDMS 20:24 CT Spine,thoracic w/o contrast Ordered. EDMS 20:55 ECHOCARD,DOPPLER/COLOR FLOW ordered. EDMS 20:55 CT Neck without contrast Ordered. EDMS 20:56 PATHOLOGIST REVIEW COMPREHENSI Ordered. EDMS 21:13 FREE T4 Ordered. EDMS 21:13 HAPTOGLOBIN Ordered. EDMS 21:18 ANTINUCLEAR ANTIBODIES Ordered. EDMS 21:22 MRSA SCREEN Ordered. EDMS 22:07 T-Sheet-- Draft Copy was scanned into [employer] and attached to record. klr Administered Medications: 16:36 Drug: morphine 4 mg [morphine 4 mg/mL intravenous cartridge (1 mL)] Route: IVP; Site: rs3 left hand; 16:53 Drug: NS 0.9% 1000 ml [sodium chloride 0.9 % injection syringe] Route: IV; Rate: bolus; pml Site: right antecubital; 20:00 Drug: morphine 4 mg [morphine 4 mg/mL intravenous cartridge (1 mL)] Route: IVP; Site: jp6 right antecubital; 20:45 Drug: Ondansetron 4 mg Route: IVP; Site: right antecubital; jp6 Signatures: Dispatcher [employer] Iftikhar Gonzalez, RN Anca Ramirez RN RN daJaye Balbuena, DOCK SUPERINTENDENT Paula LawsonRN Cindy Artis, Reg Reg [id number] Josefa Bueno Tonya,RN JEWELS tm5 Jacinda Leung RN rs3 Mila Peña RN jp6 The chart was reviewed and I authenticate all verbal orders and agree with the evaluation and treatment provided.Corrections: (The following items were deleted from the chart) 15:54 15:36 Orthostatic VS ordered. le le 16:36 16:30 THYROID PROFILE+LAB ordered. EDMS EDMS 18:02 17:48 PATHOLOGIST REVIEW COMPREHENSI ordered. EDMS EDMS 18:02 17:48 RETICULOCYTE COUNT ordered. EDMS EDMS 18:02 17:48 IRON (FE) ordered. EDMS EDMS 18:02 17:48 TOTAL IRON BINDING CAPACIT ordered. EDMS EDMS 18:02 17:48 FERRITIN ordered. EDMS EDMS 18:57 18:06 C REACTIVE PROTEIN QUANTITATIV ordered. EDMS EDMS 18:57 18:06 ANTINUCLEAR ANTIBODIES ordered. EDMS EDMS 18:57 18:11 LACTATE DEHYDROGENASE ordered. EDMS EDMS 18:57 18:11 URIC ACID ordered. EDMS EDMS 19:02 16:23 Misc Relay Checker Order ordered. le [email or web address] 20:28 20:07 Spine, THORACOLUMBAR 2 VIEW ordered. EDMS EDMS 21:01 20:55 PT & APTT ordered. EDMS EDMS 21:01 20:56 PROTHROMBIN TIME PROFILE\E\INR ordered. EDMS EDMS 21:09 21:03 VITAMIN B12 LEVEL ordered. EDMS EDMS 21:10 21:03 FOLATE ordered. EDMS EDMS 21:11 21:01 HAPTOGLOBIN ordered. EDMS EDMS 21:12 21:01 PT & APTT ordered. EDMS EDMS 21:12 21:01 PROTHROMBIN TIME PROFILE\E\INR ordered. EDMS EDMS 21:12 21:01 FREE T4 ordered. EDMS EDMS 21:20 18:55 ANTINUCLEAR ANTIBODIES ordered. EDMS EDMS Attachments: 16:37 [facility] Payment Agreement [id number] 22:07 T-Sheet-- Draft Copy klr Chart Complete MTDD
--- NOTE | 2016-04-23 22:50 | EDDOCDS ---
Nurse's Notes [facility] Name: Anjelica Jeronimo Age: 60 yrs Sex: Female : 1955 Arrival Date: 04/21/2016 Time: 14:05 Bed 10 Private MD: NO PRIMARY PHYSICIAN, . Diagnosis: Pancytopenia;Acute kidney failure;Hypothyroidism, unspecified;Syncope and collapse;Acute pain, not elsewhere classified-exacerbation of chronic back pain Presentation: 04/21 14:10 Presenting complaint: Patient states: c/o chronic low back hip and bilateral shoulder. bcj states that she has passed out several times over last 10 days - becomes very lightheaded, dizzy and passes out when walking up stairs. denies chest pain SOB. states that she has numbness in both legs. denies head injury. Acute neurological deficits are not present. Mechanism of Injury: Fall from standing position. Adult Sepsis Screening: The patient does not have new or worsening altered mentation. Patient's respiratory rate is less than 22. Systolic blood pressure is greater than 100. Patient has a qSOFA score of 0- Negative Sepsis Screen. Suicide/Homicide risk assessment- the patient denies having any suicidal and/or homicidal ideations and does not present with any other emotional, behavioral or mental health complaints. Status: Patient is not a director client services or dependent. Transition of care: patient was not received from another setting of care. 14:10 Acuity: CHADD Level 3 bcj 14:10 Method Of Arrival: Walkin/Carried/Asstd bcj Triage Assessment: 14:17 General: Appears in no apparent distress, comfortable, Behavior is cooperative. Pain: bcj Location: back Pain currently is 8 out of 10 on a pain scale. HIV screening NA for this visit Offered previously. Musculoskeletal: No deficits noted. Historical: - Allergies: IV Dye; - Home Meds: 1. Synthroid 175 mcg Oral tab 1 tab once daily 2. baclofen 10 mg Oral tab as needed - PMHx: Hypothyroidism; lymphoma; - PSHx: infusaport insertion; - Social history: Smoking status: Patient states was never smoker of tobacco. No barriers to communication noted, The patient speaks fluent German, Speaks appropriately for age. - Family history: Not pertinent. - : The pt / caregiver states he / she is not on anticoagulants. Home medication list is obtained from the patient. - Exposure Risk Screening:: None identified. Screenin:07 Screening information is obtained from the patient. Fall risk: At risk due to prior pml history of falls. Assistance ADL's: requires no assistance with activities of daily living. Abuse/DV Screen: The patient / caregiver reports he/she is: not in a situation that causes fear, pain or injury. Nutritional screening: No deficits noted. Advance Directives: Currently, there is no health care proxy. home support is adequate. Assessment: 15:05 General: Appears ill, Behavior is appropriate for age, cooperative. Pain: Location: pml left trapezius, right trapezius and lumbar area Pain currently is 7 out of 10 on a pain scale. Neurological: Level of Consciousness is awake, alert, Oriented to person, place, time. Neurological: Reports several episodes of near syncope and dizziness over last week as well as one episode of syncope in which pt fell off of her commode, denies head injury . Cardiovascular: Capillary refill < 3 seconds Rhythm is sinus rhythm No ectopy. Respiratory: Airway is patent Respiratory effort is unlabored, Respiratory pattern is regular, symmetrical, Breath sounds are clear bilaterally. GI: Abdomen is non- distended obese, Reports nausea. Derm: Skin is pale. 16:10 General: resting on stretcher, continues to report back pain. resps rapid, unlabored, pml skin pale. sinus rhythm on monitor bradycardic in 50s. . 16:53 General: Appears ill, Behavior is appropriate for age, cooperative. Pain: Location: pml lumbar area and right trapezius and left trapezius Pain currently is 8 out of 10 on a pain scale. Neurological: Level of Consciousness is awake, alert, Oriented to person, place, time. Cardiovascular: Capillary refill < 3 seconds Rhythm is sinus rhythm No ectopy. Respiratory: short of breath and tachypneic with attempts to stand and pivot to bedside commode. Derm: Skin is pale. 17:39 General: blood transfusion initiated as per hospital policy. pt family at bedside. pt pml denies complaints. sinus rhythm on monitor. resps unlabored, skin pale . 18:44 General: Appears in no apparent distress, Behavior is appropriate for age, cooperative. pml Neurological: Level of Consciousness is awake, alert, Oriented to person, place, time. Cardiovascular: Capillary refill < 3 seconds. Respiratory: Airway is patent Respiratory effort is even, unlabored. Derm: Skin is pale. 20:01 General: Appears ill, uncomfortable, Behavior is appropriate for age, cooperative, jp6 pleasant. Pain: Location: lumbar area and right trapezius and left trapezius and back Pain currently is 7 out of 10 on a pain scale. Neurological: Level of Consciousness is awake, alert, Oriented to person, place, time. EENT: No deficits noted. Cardiovascular: Capillary refill is > 3 seconds Heart tones S2 muffled Rhythm is sinus rhythm No ectopy. Respiratory: Airway is patent Respiratory effort is even, unlabored, Respiratory pattern is regular, symmetrical, Breath sounds with rales bilaterally. GI: Abdomen is non- distended obese. : No deficits noted. Derm: Skin is intact, Skin is dry, Skin is pale, Skin temperature is cool. Musculoskeletal: Reports weakness in right leg and left leg. 20:51 Reassessment: states pain is down to 5/10. Tolerating transfusion well.. jp6 Cardiovascular: Rhythm is sinus rhythm No ectopy. Respiratory: Airway is patent Respiratory effort is even, unlabored, Respiratory pattern is regular, symmetrical. Derm: Skin is intact, Skin is dry, Skin is pale, Skin temperature is cool. Vital Signs: 14:08 BP 158 / 73; Pulse 88; Resp 18; Temp 97.3; Weight 113.4 kg; Height 5 ft. 6 in. (167.64 elp cm); Pain 8/10; 14:35 BP 168 / 74 (auto/); pml 14:38 Pulse 62 MON; Pulse Ox 95% ; pml 14:50 BP 158 / 89 (auto/); pml 14:51 Pulse 60 MON; Pulse Ox 100% ; pml 15:05 BP 155 / 82 (auto/); pml 15:06 Pulse 56 MON; Pulse Ox 97% ; pml 15:20 BP 167 / 87 (auto/); pml 15:21 Pulse 56 MON; Pulse Ox 99% ; pml 15:35 BP 158 / 93 (auto/); pml 15:35 Pulse 54 MON; Pulse Ox 97% ; pml 15:50 BP 166 / 84 (auto/); pml 15:51 Pulse 64 MON; Pulse Ox 95% ; pml 16:05 BP 151 / 86 (auto/); pml 16:06 Pulse 58 MON; Pulse Ox 100% ; pml 16:20 BP 134 / 75 (auto/); pml 16:20 Pulse 62 MON; Pulse Ox 100% ; pml 16:35 Pulse 74 MON; pml 16:35 BP 174 / 91 (auto/); pml 16:50 Pulse 64 MON; Pulse Ox 98% ; pml 16:50 BP 164 / 78 (auto/); pml 17:05 Pulse 66 MON; Pulse Ox 96% ; pml 17:05 BP 150 / 80 (auto/); pml 17:14 Pulse 54 MON; Pulse Ox 96% ; pml 17:14 BP 149 / 81 (auto/); pml 17:20 Pulse 58 MON; Pulse Ox 95% ; pml 17:20 BP 156 / 108 (auto/); pml 17:30 Pulse 56 MON; Pulse Ox 100% ; pml 17:30 BP 166 / 81 (auto/); pml 17:35 Pulse 54 MON; Pulse Ox 100% ; pml 17:35 BP 167 / 94 (auto/); pml 17:50 BP 163 / 88 (auto/); pml 17:50 Pulse 54 MON; Pulse Ox 95% ; pml 18:05 Pulse 50 MON; Pulse Ox 99% ; pml 18:05 BP 150 / 77 (auto/); pml 18:31 Pulse 62 MON; Pulse Ox 100% ; pml 18:32 BP 185 / 85 (auto/); pml 18:35 Pulse 58 MON; Pulse Ox 99% ; pml 18:35 BP 175 / 91 (auto/); pml 19:05 BP 217 / 86 (auto/); jp6 19:05 Pulse 54 MON; Pulse Ox 98% ; jp6 19:20 BP 193 / 89 (auto/); jp6 19:21 Pulse 54 MON; Pulse Ox 99% ; jp6 19:35 BP 172 / 82 (auto/); jp6 19:35 Pulse 58 MON; Pulse Ox 99% ; jp6 19:50 BP 192 / 94 (auto/); jp6 19:50 Pulse 58 MON; Pulse Ox 99% ; jp6 19:55 BP 146 / 83 (auto/); jp6 19:55 Pulse 58 MON; Pulse Ox 100% ; jp6 19:55 Resp 18; Temp 95.8(O); Pain 7/10; jp6 20:20 BP 132 / 80 (auto/); jp6 20:20 Pulse 54 MON; Pulse Ox 94% ; jp6 20:50 BP 136 / 77 (auto/); jp6 20:50 Pulse 50 MON; Pulse Ox 92% ; jp6 20:50 Pulse Ox 98% on R/A; Pain 5/10; jp6 14:08 Body Mass Index 40.35 (113.40 kg, 167.64 cm) [facility] Vitals: 14:08 Log In Time: April 21, 2016 at 14:06. [facility] ED Course: 14:07 Patient visited by Viviana Mims PCA. elp 14:07 Patient moved to Waiting elp 14:08 NO PRIMARY PHYSICIAN, . is Private Physician. elp 14:08 Patient visited by Viviana Mims PCA. elp 14:09 Patient moved to Pre RCE elp 14:14 Triage Initiated bcj 14:18 Patient visited by Iftikhar Mckee RN. bcj 14:23 Patient moved to 10 [facility] 14:25 [facility]aman [facility] jo4 14:25 Aarti Vasquez MD is Attending Physician. jo4 15:07 Patient visited by Paula Osuna RN. pml 15:07 The patient / caregiver is instructed regarding the plan of care and ED course. Patient pml has correct armband on for positive identification. Placed in gown. Bed in low position. Call light in reach. Side rails up X2. athletic monitor on. Pulse ox on. NIBP on. 15:07 Inserted peripheral IV: 20gauge IV in right antecubital area and blood collected. pml Patient tolerated the procedure well. 15:18 Jaye Wheat FNP [facility]. le 15:34 Patient visited by Jaye Wheat FNP. le 15:34 Patient visited by Jaye Wheat FNP. le 16:09 Patient visited by Chico Brasher PCA. jrd 16:09 EKG done. (by ED staff). Reviewed by Jaye FARAH. jrd 16:19 DIFFERENTIAL NO CHARGE Sent. pml 16:35 Patient name changed from Anjelica\S\\S\Sequim\S\ to Anjelica\S\ \S\Sequim. EDMS 16:37 [facility] [place] was [place] into [employer] and attached to record. ks16 16:41 Patient visited by Mirian Galeana RN. ck1 16:41 Chest, 2 View (pa\E\lat) Returned. EDMS 16:44 Patient visited by Paula Osuna,JEWELS. pml 16:54 Patient visited by Paula Osuna,JEWELS. pml 17:40 Patient visited by Paula Osuna,JEWELS. pml 17:49 Hilda Fine is Hospitalizing Provider. le 18:23 Patient visited by Trina Dumas,JEWELS. kh7 18:45 Patient visited by Paula Osuna,JEWELS. pml 18:50 Blood products: PRBCs X 1 unit given. pml 19:14 Mila Peña,JEWELS is Primary Nurse. jp6 19:55 No procedures done that require assistance. jp6 19:55 Blood products: PRBCs X 1 unit given. See transfusion record. jp6 20:01 URINE CULTURE Sent. jp6 21:47 Patient visited by Lilibeth Couch RN. tm5 22:07 T-Sheet-- Draft Copy was scanned into [employer] and attached to record. klr Administered Medications: 16:36 Drug: morphine 4 mg [morphine 4 mg/mL intravenous cartridge (1 mL)] Route: IVP; Site: rs3 left hand; 16:53 Drug: NS 0.9% 1000 ml [sodium chloride 0.9 % injection syringe] Route: IV; Rate: bolus; pml Site: right antecubital; 20:00 Drug: morphine 4 mg [morphine 4 mg/mL intravenous cartridge (1 mL)] Route: IVP; Site: jp6 right antecubital; 20:45 Drug: Ondansetron 4 mg Route: IVP; Site: right antecubital; jp6 Intake: 20:50 PO: 150.00ml; IV: 400.00ml (PRBC); Total: 550.00ml. jp6 Output: 20:50 Urine: 0.00ml; Total: 0.00ml. jp6 Order Results: Lab Order: Basic Metabolic Profile; SPEC'M 04/21/16 14:42 Test: GLUCOSE, FASTING; Value: 97; Range: 70-105; Units: MG/DL; Status: F Test: BLOOD UREA NITROGEN; Value: 19; Range: 7-18; Abnormal: Above high normal; Units: MG/DL; Status: F Test: CREATININE FOR GFR; Value: 1.88; Range: 0.55-1.02; Abnormal: Above high normal; Units: MG/DL; Status: F Test: GLOMERULAR FILTRATION RATE; Value: 29.2; Range: >51; Abnormal: Below low normal; Status: F Test: SODIUM LEVEL; Value: 139; Range: 136-145; Units: MEQ/L; Status: F Test: POTASSIUM SERUM; Value: 4.0; Range: 3.5-5.1; Units: MEQ/L; Status: F Test: CHLORIDE LEVEL; Value: 105; Range: 98-107; Units: MEQ/L; Status: F Test: CARBON DIOXIDE LEVEL; Value: 26; Range: 21-32; Units: MEQ/L; Status: F Test: ANION GAP; Value: 8; Range: 8-16; Units: MEQ/L; Status: F Test: CALCIUM LEVEL; Value: 9.1; Range: 8.5-10.1; Units: MG/DL; Status: F Test Note: ; Units are mL/min/1.73 m2 Chronic Kidney Disease Staging per NKF: Stage I & II GFR >=60 Normal to Mildly Decreased Stage III GFR 30-59 Moderately Decreased Stage IV GFR 15-29 Severely Decreased Stage V GFR <15 Very Little GFR Left ESRD GFR <15 on DEHYDRATING PRESS OPERATOR Lab Order: CBC with Diff; SPEC'M 04/21/16 14:42 Test: WHITE BLOOD COUNT; Value: 2.1; Range: 4.0-10.0; Abnormal: Below low normal; Units: K/mm3; Status: F Test: RED BLOOD COUNT; Value: 1.32; Range: 4.00-5.40; Abnormal: Below low normal; Units: M/mm3; Status: F Test: HEMOGLOBIN; Value: 5.3; Range: 12.0-16.0; Abnormal: Critical Low; Units: g/dl; Status: F Test: HEMATOCRIT; Value: 16.2; Range: 36.0-47.0; Abnormal: Below low normal; Units: %; Status: F Test: MEAN CORPUSCULAR VOLUME; Value: 122.8; Range: 80.0-96.0; Abnormal: Above high normal; Units: fl; Status: F Test: MEAN CORPUSCULAR HEMOGLOBIN; Value: 40.1; Range: 27.0-33.0; Abnormal: Above high normal; Units: pg; Status: F Test: MEAN CORPUSCULAR HGB CONC; Value: 32.7; Range: 32.0-36.5; Units: g/dl; Status: F Test: RED CELL DISTRIBUTION WIDTH; Value: 18.6; Range: 11.5-14.5; Abnormal: Above high normal; Units: %; Status: F Test: PLATELET COUNT, AUTOMATED; Value: 97; Range: 150-450; Abnormal: Below low normal; Units: k/mm3; Status: F Test: NEUTROPHILS; Value: 22; Range: 35-75; Abnormal: Below low normal; Units: %; Status: F Test: LYMPHOCYTES; Value: 71; Range: 16-52; Abnormal: Above high normal; Units: %; Status: F Test: MONOCYTES; Value: 4; Range: 0-8; Units: %; Status: F Test: EOSINOPHILS; Value: 1; Range: 0-5; Units: %; Status: F Test: BLAST CELLS; Value: 2; Range: 0-0; Abnormal: Above high normal; Units: %; Status: F Test: ANISOCYTOSIS; Value: 2+; Status: F Test: MICROCYTOSIS; Value: 4+; Status: F Test: NEUTROPHILS %; Value: 22.3; Range: 36.0-66.0; Abnormal: Below low normal; Units: %; Status: F Test: LYMPH %; Value: 60.7; Range: 24.0-44.0; Abnormal: Above high normal; Units: %; Status: F Test: MONO %; Value: 4.7; Range: 0.0-5.0; Units: %; Status: F Test: EOS %; Value: 4.1; Range: 0.0-3.0; Abnormal: Above high normal; Units: %; Status: F Test: BASO %; Value: 0.5; Range: 0.0-1.0; Units: %; Status: F Test: LARGE UNSTAINED CELL %; Value: 7.8; Range: 0.0-4.0; Abnormal: Above high normal; Units: %; Status: F Test: NEUTROPHILS #; Value: 0.5; Range: 1.8-7.7; Abnormal: Below low normal; Units: K/mm3; Status: F Test: LYMPH #; Value: 1.4; Range: 1.5-4.5; Abnormal: Below low normal; Units: K/mm3; Status: F Test: MONO #; Value: 0.1; Range: 0.0-0.8; Units: K/mm3; Status: F Test: EOS #; Value: 0.1; Range: 0.0-0.50; Units: K/mm3; Status: F Test: BASO #; Value: 0.0; Range: 0.0-0.2; Units: K/mm3; Status: F Test: LARGE UNSTAINED CELL #; Value: 0.2; Range: 0.0-0.4; Units: K/mm3; Status: F Lab Order: Cardiac Injury Profile; [facility] 04/21/16 14:42 Test: CPK CREATINE PHOSPHOKINASE; Value: 999; Range: 26-192; Abnormal: Above high normal; Units: U/L; Status: F Test: CK-MB VALUE MASS; Value: 6.0; Range: 0.0-3.6; Abnormal: Above high normal; Units: NG/ML; Status: F Test: MB/CK RELATIVE INDEX; Value: 0.60; Range: < OR =4; Status: F Test Note: ; DIAGNOSIS CRITERIA MMB ng/ml Relative Index (RI) NON-AMI < or = 5 N/A FU ZONE > 5 < or = 4 AMI > 5 > 4 Lab Order: Thyroid Stimulating Hormone; [facility] 04/21/16 14:42 Test: THYROID STIMULATING HORMONE; Value: 133.000; Range: 0.358-3.740; Abnormal: Above high normal; Units: uIU/ML; Status: F Lab Order: Troponin; [facility] 04/21/16 14:42 Test: TROPONIN I; Value: < 0.02; Range: < 0.10; Units: NG/ML; Status: F Test Note: ; Troponin I Reference Interval for [employer] LOCI: 99th Percentile= 0.00-0.045 ng/ml Risk Stratification: <= 0.10 ng/ml Decreased Risk for Adverse Clinical Events. 0.10-1.50 ng/ml Increased Risk for Adverse Clinical Events. Evaluation of additional criterion and/or repeat testing in 2-6 hours is suggested to rule out myocardial damage. >= 1.50 ng/ml Indicative of Myocardial Injury. Lab Order: Urinalysis; SPEC'M 04/21/16 16:51 Test: APPEARANCE, URINE; Value: CLEAR; Range: CLEAR; Status: F Test: COLOR, URINE; Value: STRAW; Range: YELLOW; Status: F Test: PH,URINE; Value: 6.0; Range: 5.0-9.0; Units: UNITS; Status: F Test: SPECIFIC GRAVITY URINE AUTO; Value: 1.004; Range: 1.002-1.035; Status: F Test: PROTEIN, URINE AUTO; Value: NEGATIVE; Range: NEGATIVE; Units: mg/dL; Status: F Test: GLUCOSE, URINE (UA) AUTO; Value: NEGATIVE; Range: NEGATIVE; Units: mg/dL; Status: F Test: KETONE, URINE AUTO; Value: NEGATIVE; Range: NEGATIVE; Units: mg/dL; Status: F Test: UROBILINOGEN, URINE AUTO; Value: 0.2; Range: 0.0-2.0; Units: mg/dL; Status: F Test: BILIRUBIN, URINE AUTO; Value: NEGATIVE; Range: NEGATIVE; Status: F Test: NITRITE, URINE AUTO; Value: NEGATIVE; Range: NEGATIVE; Status: F Test: LEUKOCYTE ESTERASE, URINE AUTO; Value: 3+; Range: NEGATIVE; Abnormal: Above high normal; Status: F Test: BLOOD, URINE BLOOD; Value: NEGATIVE; Range: NEGATIVE; Status: F Test: WBC, URINE AUTO; Value: 20; Range: 0-3; Abnormal: Above high normal; Units: /HPF; Status: F Test: RBC, URINE AUTO; Value: 3; Range: 0-3; Units: /HPF; Status: F Test: BACTERIA, URINE AUTO; Value: 1+; Range: NEGATIVE; Abnormal: Above high normal; Status: F Test: SQUAMOUS EPITHELIAL CELL UR AU; Value: 2; Range: 0-6; Units: /HPF; Status: F Test: HYALINE CAST, URINE AUTO; Value: 0; Range: 0-1; Units: /LPF; Status: F Lab Order: Liver Profile; SPEC'M 04/21/16 14:42 Test: AST/SGOT; Value: 41; Range: 15-37; Abnormal: Above high normal; Units: U/L; Status: F Test: ALT/SGPT; Value: 22; Range: 12-78; Units: U/L; Status: F Test: ALKALINE PHOSPHATASE; Value: 78; Range: 45-117; Units: U/L; Status: F Test: BILIRUBIN,TOTAL; Value: 0.4; Range: 0.2-1.0; Units: MG/DL; Status: F Test: BILIRUBIN,DIRECT; Value: 0.1; Range: 0.0-0.2; Units: MG/DL; Status: F Test: TOTAL PROTEIN; Value: 8.3; Range: 6.4-8.2; Abnormal: Above high normal; Units: GM/DL; Status: F Test: ALBUMIN; Value: 4.2; Range: 3.2-5.2; Units: GM/DL; Status: F Test: ALBUMIN/GLOBULIN RATIO; Value: 1.02; Range: 1.00-1.93; Status: F Lab Order: CRP; [facility] 04/21/16 14:42 Test: C REACTIVE PROTEIN QUANTITATIV; Value: < 0.30; Range: 0.00-0.30; Units: MG/DL; Status: F Lab Order: ESR; [facility] 04/21/16 14:42 Test: ERYTHROCYTE SEDIMENTATION RATE; Value: 126; Range: 0-30; Abnormal: Above high normal; Units: mm/hr; Status: F Lab Order: D-Dimer Quant; [facility] 04/21/16 15:45 Test: D-DIMER QUANT; Value: 468.0; Range: <500; Units: ng/ml; Status: F Lab Order: PLATELET ESTIMATE; [facility] 04/21/16 14:42 Test: PLATELET ESTIMATE; Value: DECREASED; Range: NORMAL; Status: F Lab Order: TYPE & SCREEN; [facility] 04/21/16 14:42 Test: BLOOD TYPE; Value: O POS; Status: F Test: AB SCREEN (INDIRECT AP)GEL; Value: NEGATIVE; Status: F Test: IMMEDIATE SPIN CROSSMATCH; Value: [id number] O POSITIVE Compatible? Y; Status: F Test: IMMEDIATE SPIN CROSSMATCH; Value: [id number] O POSITIVE Compatible? Y; Status: F Test: IMMEDIATE SPIN CROSSMATCH; Value: [id number] O POSITIVE Compatible? Y; Status: F Test: IMMEDIATE SPIN CROSSMATCH; Value: [id number] O POSITIVE Compatible? Y; Status: F Lab Order: Urine Myoglobin Screen; 04/21/16 16:51 Test: MYOGLOBIN SCREEN, URINE; Value: NEGATIVE; Range: NEGATIVE; Status: F Lab Order: THYROXINE (T4); 04/21/16 14:42 Test: THYROXINE (T4); Value: < 0.5; Range: 4.5-12.0; Abnormal: Below low normal; Units: UG/DL; Status: F Lab Order: T UPTAKE; 04/21/16 14:42 Test: T UPTAKE; Value: 26; Range: 30-39; Abnormal: Below low normal; Units: %; Status: F Lab Order: PATHOLOGIST REVIEW COMPREHENSI; 04/21/16 14:42 Test: SLIDE REVIEW; Value: Report; Status: F Test: SOURCE; Value: PERIPHERAL SMEAR; Status: F Test: REASON FOR REVIEW; Value: COMPREHENSIVE REVIEW; Status: F Test Note: ; Slide and/or specimen referred to Pathologist for review. Results of the review are located in the EMR Pathology module under Peripheral Smear when completed. Lab Order: RETICULOCYTE COUNT; 04/21/16 14:42 Test: RETICULOCYTE % [id number]; Value: 1.20; Range: 0.5-1.5; Units: %; Status: F Test: RETICULOCYTE ABSOLUTE [id number]; Value: 16; Range: 17-77; Abnormal: Below low normal; Units: x10(9)/L; Status: F Test: RETIC HEMOGLOBIN CONTENT CHr; Value: 43.5; Range: 24-36; Abnormal: Above high normal; Units: PG; Status: F Lab Order: FERRITIN; 04/21/16 14:42 Test: FERRITIN; Value: 135; Range: 8-252; Units: NG/ML; Status: F Lab Order: TOTAL IRON BINDING CAPACIT; 04/21/16 14:42 Test: IRON (FE); Value: 172; Range: 50-170; Abnormal: Above high normal; Units: UG/DL; Status: F Test: TOTAL IRON BINDING CAPACITY; Value: 384; Range: 250-450; Units: UG/DL; Status: F Test: PERCENT SATURATION; Value: 44.8; Range: 13.2-37.4; Abnormal: Above high normal; Units: %; Status: F Lab Order: BRAIN NATIURETIC PEPTIDE; 04/21/16 14:42 Test: BRAIN NATRIURETIC PEPTIDE; Value: 15.1; Range: <100; Units: PG/ML; Status: F Lab Order: LACTATE DEHYDROGENASE; 04/21/16 14:42 Test: LDH LACTATE DEHYDROGENASE; Value: 452; Range: 84-246; Abnormal: Above high normal; Units: U/L; Status: F Lab Order: URIC ACID; 04/21/16 14:42 Test: URIC ACID; Value: 7.8; Range: 2.6-6.0; Abnormal: Above high normal; Units: MG/DL; Status: F Lab Order: PROTHROMBIN TIME PROFILE\E\INR; 04/21/16 15:45 Test: PROTHROMBIN TIME; Value: 13.5; Range: 12.3-14.5; Units: SECONDS; Status: F Test: INR; Value: 1.02; Status: F Test Note: ; THERAPUTIC HUMAN INR VALUES INDICATIONS NORMAL RANGES PROPHYLAXIS/TREATMENT OF: VENOUS THROMBOSIS 2.0-3.0 PULMONARY EMBOLISM 2.0-3.0 PREVENTION OF SYSTEMIC EMBOLISM FROM: TISSUE HEART VALVES 2.0-3.0 ACUTE MYOCARDIAL INFARCTION 2.0-3.0 VALVULAR HEART DISEASE 2.0-3.0 ATRIAL FIBRILLATION 2.0-3.0 MECHANICAL VALVES(HIGH RISK) 2.5-3.5 RECURRENT MYOCARDIAL INFARCTION 2.5-3.5 Lab Order: PARTIAL THROMBOPLASTIN TIME; 04/21/16 15:45 Test: PARTIAL THROMBOPLASTIN TIME; Value: 34.9; Range: 26.6-37.1; Units: SECONDS; Status: F Lab Order: FREE T4; 04/21/16 14:42 Test: FREE T4; Value: 0.19; Range: 0.76-1.46; Abnormal: Below low normal; Units: NG/DL; Status: F Radiology Order: Chest, 2 View (pa\E\lat) Test: Chest, 2 View (pa\E\lat) REASON FOR EXAMINATION: Syncope; Clinical: Syncope.; ; Technique: AP and lateral views.; ; Comparison: None.; ; Findings:; Evaluation is limited by portable technique and underpenetration both of which; accentuate the pulmonary vasculature and interstitium. Basilar atelectasis along; with pulmonary venous congestion cannot be excluded. No discrete focal; consolidation, effusion, or pneumothorax. Mediastinum and cardiac silhouette are; grossly normal for portable technique. Skeletal structures are intact.; ; Impression:; Limited portable examination. Cannot exclude basilar atelectasis or mild; pulmonary venous congestion.; ; ; Signed by; Sudarshan Ambriz MD 04/21/2016 03:59 P; Outcome: 17:49 Decision to Hospitalize by Provider. le 21:18 Discharge Assessment: Patient awake, alert and oriented x 3. No cognitive and/or jp6 functional deficits noted. Patient verbalized understanding of disposition instructions. patient administered narcotics - yes. Patient was admitted to the hospital or transferred to another facility. The following High Risk Discharge criteria are identified: None. Admitted to ICU accompanied by nurse, accompanied by tech, via stretcher, on monitor, with chart. Condition: unchanged critical. CT Study completed. Ultrasound Study completed. Admission hand-off: Report called to Daniel DONIS. Property :Personal belongings accompany Pt. 21:48 Patient left the ED. tm5 Signatures: Dispatcher [employer] EDMS Iftikhar Mckee RN RN Mirian Ho,RN RN ck1 Jaye Wheat, DIVER'S TENDER DIVER'S TENDER Jacinda Carbone,RN RN rs3 Paula OsunaRN Trina DiezRN RN kh7 Viviana Mims, POLYSOMNOGRAPHIC TECHNOLOGIST POLYSOMNOGRAPHIC TECHNOLOGIST Chico Fritz, POLYSOMNOGRAPHIC TECHNOLOGIST POLYSOMNOGRAPHIC TECHNOLOGIST Steffi Alberto, DO DO jo4 Cindy Kiser, Reg Reg [id number] Mila PeñaRN RN jp6 Josefa Bueno TonyaRN RN tm5 Chart Complete MTDD
[2016-04-24] VITALS: BP 143/75
[2016-04-24 01:24] VITALS: BP 143/75
[2016-04-24] MEDS: **hydrALAZINE HCL** 25 MG TAB NG SCH (01:24)
[2016-04-24 04:00] VITALS: BP 142/71
[2016-04-24 05:37] LABS: DIFF SLIDE NUMBER 36; MEAN CORPUSCULAR HEMOGLOBIN 34.3 pg (27.0-33.0); MEAN CORPUSCULAR HGB CONC 34.4 g/dl (32.0-36.5); MEAN CORPUSCULAR VOLUME 99.7 fl (80.0-96.0); RED CELL DISTRIBUTION WIDTH 21.5 % (11.5-14.5); WHITE BLOOD COUNT 1.6 K/mm3 (4.0-10.0)
[2016-04-24 05:39] LABS: PLATELET COUNT, AUTOMATED 68 k/mm3 (150-450)
[2016-04-24 05:40] LABS: CALCIUM LEVEL 8.7 MG/DL (8.5-10.1); CREATININE FOR GFR 1.4 MG/DL (0.55-1.02); FREE T4 0.63 NG/DL (0.76-1.46); POTASSIUM SERUM 3.7 MEQ/L (3.5-5.1)
[2016-04-24] MEDS ORDERED: CYTO25TA PO (06:05)
[2016-04-24] MEDS ORDERED: HYDR10VL IV (06:05)
[2016-04-24] MEDS ORDERED: COLA100C PO (06:05)
[2016-04-24] MEDS ORDERED: BISA5TAB7 PO (06:05)
[2016-04-24] MEDS ORDERED: LEVO10VL IV (06:05)
[2016-04-24 07:23] LABS: BANDS 2 % (< 11); EOSINOPHILS 2 % (0-5); NUCLEATED RED BLOOD CELL 3 % (0-0)
[2016-04-24] MEDS: HYDROCORTISONE 100 MG/2 ML VIAL (J1720) IV SCH (07:24)
[2016-04-24] MEDS: ASCORBIC ACID 500 MG TAB PO SCH (07:24)
[2016-04-24 07:25] LABS: ANISOCYTOSIS 2+
[2016-04-24 07:45] VITALS: BP 160/79
--- NOTE | 2016-04-24 08:08 | DSES ---
DISCHARGE DATE: 04/24/2015 Please note this is an addendum to a previously dictated discharge summary. For complete details, please refer to discharge summary dictated by Dr. Salguero on 04/22/2016. I was contacted by Dr. Blanco from [facility] regarding patient's status. Updated him on current condition, laboratory, imaging. We are informed that there is currently a bed available and transfer orders are now in place for patient to be transferred up [facility] as of this morning. DISCHARGE MEDICATION: - hydrocortisone 100 mg IV every 8 hours - levothyroxine 200 mcg IV every 8 hours - Cytomel 6.25 mcg every 8 hours - hydralazine 25 mg every 8 hours - bisacodyl 5 mg by mouth daily as needed CONDITION: Stable Continue home medication, Benadryl 25 mg by mouth every 6 hours as needed. For information regarding discharge instructions, please refer to previous dictation. My preceptor for this patient encounter was Dr. Faustin. The preceptor was physically present in the building during the encounter and was fully available. As needed, all aspects of the patient interview, examination, medical decision making process, and medical care plan development were reviewed and approved by the preceptor. The preceptor is aware and concurs with the plan as stated in the body of this note and will attest to such by his/her cosignature. KELVIN
== END 2016-04-24 08:00 | disposition short-term general hospital (02) | DRG 424 ==
LOC: M ED 14:05 → M ED INP 17:43 → M ICU 21:43
PROVIDERS: ADMIT General Practice; ATTEND Internal Medicine
PROC: 30233N1 Transfusion of Nonautologous Red Blood Cells into Peripheral Vein, Percutaneous Approach (ICD-10-PCS; principal; 2016-04-21)
DX: E03.8 Other specified hypothyroidism (principal); N17.9 Acute kidney failure, unspecified; D61.818 Other pancytopenia; M10.9 Gout, unspecified; I10 Essential (primary) hypertension; F41.9 Anxiety disorder, unspecified; R68.0 Hypothermia, not associated with low environmental temperature; R00.1 Bradycardia, unspecified; Z85.72 Personal history of non-Hodgkin lymphomas; Z79.899 Other long term (current) drug therapy; Z91.041 Radiographic dye allergy status